=== PATIENT | female | born 1945 ===

== ENCOUNTER 2020-08-26 22:05 | Outpatient (REF) | payer MEDICARE, BC, SELFPAY | END 2020-08-26 22:06 | disposition home or self-care (01) | LOC: NCHCN 22:05 | PROVIDERS: PCP Family Medicine; Visit Provider Family Medicine | DX: N39.0 Urinary tract infection, site not specified (principal) | CPT/HCPCS: 87077; 87086; 87186 ==

== ENCOUNTER 2023-06-01 14:10 | Outpatient (REF) | payer MEDICARE, BC, SELFPAY ==
--- OUTSIDE RECORDS SUMMARY | 2023-06-01 14:12 | XMS_ITS | CCD ---
Author Name Unknown Address [address] [place] [address] [id number] Organization Unknown Address [address] [place] [address] [id number] Care Team Providers Care Gis Application Developer Name Role Phone ISAURA GARLAND Attending Physician [phone] Vital Signs Unknown or Not Available. Allergies Allergy Code Allergy Type Reaction Status No Known Drug Allergies 0 No known drug allergies Active Procedures Unknown or Not Available. History of Immunizations Unknown or Not Available. Problems Unknown or Not Available. Results Unknown or Not Available. Active Medications Unknown or Not Available. Medications Administered During Visit Unknown or Not Available. Encounters Encounter Diagnosis Diagnosis Code Start Date Senile osteoporosis [id number] 08/19/2022 Social History Smoking Status Code Start Date End Date Former smoker [id number] 05/10/1964 05/10/1974 Patient Decision Aids Unknown or Not Available. Discharge Instructions You were admitted to [facility] on 08/19/2022 10:52 with a principal diagnosis of Age-related osteoporosis without current pathological fracture You were discharged from [facility] on 08/19/2022 10:52 Should you have any questions prior to discharge, please contact a member of your healthcare team. If you have left the hospital and have any questions, please contact your primary care physician. Chief Complaint and Reason For Visit Chief Complaint Date of Onset OSTEOPOROSIS Function Status Unknown or Not Available. Plan of Care Unknown or Not Available. Referral/Transition of Care Unknown or Not Available.
[2023-06-01 22:28] LABS: Anion Gap 6.3 mmol/L (3-11); BUN 16 mg/dL (7-18); CO2 27.7 mmol/L (21.0-32.0); CREATININE 0.8 mg/dL (0.55-1.02); Calcium 10.4 mg/dL (8.5-10.1); Calculated LDL 98 mg/dL (<100); Chloride 106 mmol/L (98-107); Cholesterol 180 mg/dL (<200); Estimated GFR 76.31 (mL/min/1.73m2); Glucose 98 mg/dL (74-106); HDL Cholesterol 53 mg/dL (40-60); Potassium 4.3 mmol/L (3.5-5.1); Sodium 140 mmol/L (136-145); Triglyceride 148 mg/dL (<150)
== END 2023-06-01 14:11 | disposition home or self-care (01) ==
LOC: NCHCN 14:10
PROVIDERS: PCP Family Medicine; Visit Provider Family Medicine
DX: Z00.00 Encounter for general adult medical examination without abnormal findings (principal)
CPT/HCPCS: 80048; 80061

== ENCOUNTER 2024-03-30 16:38 | Outpatient (REF) | payer MEDICARE, SELFPAY ==
--- OUTSIDE RECORDS SUMMARY | 2024-03-30 16:42 | XMS_ITS | Encounter Summary ---
Author Organization [facility] Address [address] [place] [address] Care Team Providers Care Cod Clerk Name Role Phone Lorin Niño MD Primary Care Provider [phone] Reason for Visit * Reason Onset Date Comments Other 10/11/2019 see note Encounter Details Date Type Department Care Team (Late st Contact Info) Description 10/11/2019 Telephone [facility]ology & Oncology [address] [place] [address] Savita Bangura, TIM [address] [facility] [address] [place] [address] Other (see note) Social History Tobacco Use Types Packs/Day Years Used Date Smoking Tobacco: Former Smokeless Tobacco: Never Comments:Back in [employer] Comments Unknown Sex and Gender Information Value Date Recorded Sex Assigned at Not on file Legal Sex Female 18:22 EST Gender Identity Female 10/03/2019 8:58 EDT Sexual Orientation Not on file COVID-19 Exposure Response Date Recorded In the last month, have you been in contact with someone who was confirmed or suspected to have Coronavirus / COVID-19? No / Unsure 10/06/2019 13:51 EDT documented as of this encounter Miscellaneous Notes * Telephone Encounter - Tanesha Wilson - 10/11/2019 1102 EDT PT aware and will call Radha to schedule documented in this encounter Plan of Treatment Not on file documented as of this encounter Visit Diagnoses Not on filedocumented in this encounter Care Teams Cod Clerk Relationship Specialty Start Date End Date Lorin Niño MD [address] [place] [address] PCP - General 07/14/12 documented as of this encounter
--- OUTSIDE RECORDS SUMMARY | 2024-03-30 16:42 | XMS_ITS | Referral Summary ---
Author Organization [facility] Address [address] [place] [address] Care Team Providers Care Pneumatic Hoist Operator Name Role Phone Lorin Niño MD Primary Care Provider [phone] Allergies No known active allergies Medications ASCORBATE CALCIUM (VITAMIN C ORAL) Take by mouth daily. Active ERGOCALCIFEROL, VITAMIN D2, (VITAMIN D ORAL) Take by mouth daily. Active tamoxifen (NOLVADEX) 20 mg tablet Take 1 Tab by mouth daily. 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 Stage I A, pT1b(0.7cm) pN0 M0. ER/NV positive, HER-2 negative. a- 05/2013 mammographic finding. Breast biopsy confirming the diagnosis. b- 05/2013-left breast lumpectomy, sentinel lymph node biopsy. [facility]. c-08/2013 completed adjuvant radiation therapy. d-08/2013 - 08/2017 on adjuvant tamoxifen. e- 08/2017 no clear indication for further Tamoxifen, however, patient is very concerned about the risk of osteoporosis and risk of a second malignancy. Decided for prophylactic tamoxifen for total of 10 years. Osteoporosis 10/04/2019 Social History Tobacco Use Types Packs/Day Years Used Date Smoking Tobacco: Former Smokeless Tobacco: Never Comments:Back in [facility] Interpersonal Safety Answer Date Record ed Physically Hurt Never 12/10/2019 Verbally Threaten Not on file 12/10/2019 Comments Unknown Sex and Gender Information Value Date Recorded Sex Assigned at Not on file Legal Sex Female 18:22 EST Gender Identity Female 10/03/2019 8:58 EDT Sexual Orientation Not on file Last Filed Vital Signs Vital Sign Reading Time Taken Comments Blood Pressure 110/82 10/06/2019 1355 EDT Pulse 83 10/06/2019 1355 EDT Temperature 36.7 ??C (98 ??F) 09/27/2012 0901 EDT Respiratory Rate - - Oxygen Saturation 98% 10/06/2019 1355 EDT Inhaled Oxygen Concentration - - Weight 68 kg (150 lb) 10/06/2019 1355 EDT Height - - Body Mass Index - - Plan of Treatment Not on file Insurance [facility] MEDICARE MEDICARE Care Teams Pneumatic Hoist Operator Relationship Specialty Start Date End Date Lorin Niño MD [address] [place] [address] [facility] - General 07/14/12
--- OUTSIDE RECORDS SUMMARY | 2024-03-30 16:42 | XMS_ITS | Encounter Summary ---
Author Organization [facility] Address [address] [place] [address] Care Team Providers Care Furniture Packer Name Role Phone Lorin Niño MD Primary Care Provider [phone] Reason for Visit * Reason Comments New Patient Visit Encounter Details Date Type Department Care Team (Late st Contact Info) Description 10/06/2019 14:00 EDT Office Visit [facility] Adult Hematology & Oncology [address] [place] [address] Savita Bangura, TIM [address] [facility], [facility] [address] [place] [address] Malignant neoplasm of upper-outer quadrant of female breast, unspecified estrogen receptor status, unspecified laterality (HCC-CMS) (Primary Dx) Social History Tobacco Use Types Packs/Day Years [...] 13:51 EDT documented as of this encounter Last Filed Vital Signs Vital Sign Reading Time Taken Comments Blood Pressure 110/82 10/06/2019 1355 EDT Pulse 83 10/06/2019 1355 EDT Temperature - - Respiratory Rate - - Oxygen Saturation 98% 10/06/2019 1355 EDT Inhaled Oxygen Concentration - - Weight 68 kg (150 lb) 10/06/2019 1355 EDT Height - - Body Mass Index - - documented in this encounter Progress Notes * Savita Bangura MBBS - 10/06/2019 1400 EDT Images from the original note were not included. 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 Stage I A, pT1b(0.7cm) pN0 M0. ER/MT positive, HER-2 negative. 2013: Diagnosed with stage I left-sided breast cancer May,: Biopsy: DCIS, invasive ductal carcinoma of left breast, ER MT positive and HER-2 negative. May,: Left lumpectomy with sentinel lymph node biopsy: Well- differentiated 0.7 cm invasiveductal carcinoma with a component of DCIS, negative sentinel lymph nodes, HER-2 negative. August,: Patient finished adjuvant radiation therapy. August,-August,: Patient finished tamoxifen. She was started on tamoxifen as DEXA scan fromSep, 2013 showed T score of -1.3 in hips and T score of -2.6 in her lumbosacral spine. August,: Patient is concerned about osteoporosis and risk of second malignancy. Decided to taketamoxifen for 10 years in total. August,: Ultrasound of left breast: Asymmetry noted in upper left breast with new calcifications. Biopsy: Benign breast tissue with fat necrosis and microcalcifications noted and hyalinized fibrosis. Patient is being seen in medical oncology today for her annual visit.?Today, patient mentions that she did not get her screening mammogram this year. She reports feeling well. She denies lumps in both breasts, chest pain, shortness of breath, abdominal pain, changes in bladder or bowel habits.?She also mentions that her last DEXA scan was in 2013. 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 Patient used oral contraceptive pills for approximately 10 to 15 years during her teenage years. PROBLEM LIST Patient Active Problem List Diagnosis ??? Chronic fatigue ??? Malignant neoplasm of female breast (HCC-CMS) ??? Osteoporosis PAST HISTORY Past Medical History: Diagnosis Date ??? Basal cell carcinoma 09/27/12 right neck Past Surgical History: Procedure Laterality Date ??? MOHS SURGERY 09/27/12 right neck Family History Problem Relation Age of Onset ??? Lung Cancer Father ??? Colon Cancer Paternal Grandfather Social History Tobacco Use ??? Smoking status: Former Smoker ??? Smokeless tobacco: Never Used ??? Tobacco comment: Back in [facility] Substance Use Topics ??? Alcohol use: Not on file ??? Drug use: Not on file Social History Social History Narrative Patient lives with her at home. She denies smoking or alcohol use. 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 MEDICATIONS Current Outpatient Medications Medication Sig Dispense Refill Last Dose ??? ASCORBATE CALCIUM (VITAMIN C ORAL) Take by mouth daily. Taking ??? ERGOCALCIFEROL, VITAMIN D2, (VITAMIN D ORAL) Take by mouth daily. Taking ??? FLAXSEED ORAL sprinkle on cereal Taking ??? tamoxifen (NOLVADEX) 20 mg tablet Take 1 Tab by mouth daily. Taking No current facility-administered medications for this visit. ALLERGIES No Known Allergies REVIEW OF SYSTEMS Constitutional: Negative for activity change, appetite change, fatigue and fever. HENT: Negative. Eyes: Negative. Respiratory: Negative. Cardiovascular: Negative. Gastrointestinal: Negative. Endocrine: Negative. Musculoskeletal: Negative. Skin: Negative. Allergic/Immunologic: Negative. Neurological: Negative. Hematological: Negative. Psychiatric/Behavioral: Negative. DIAGNOSTIC DATA Results for orders placed or performed in visit on 09/07/18 SURGICAL PATHOLOGY Result Value Ref Range Pathology Report: SURGICAL PATHOLOGY REPORT Reports generated via electronic interface contain original data; however they are lacking the format of the original report. Caution should be taken when reading/interpreting unformatted reports. Name: WALLACE CARMEN : 1945 (Age: 73) F Collect Date: 09/07/2018 Location: [facility] Receive Date: 09/07/2018 Provider: CAMELIA ANTONIO MD Copy to: LOIRN SAENZ MD Final Pathologic Diagnosis: BREAST, LEFT, 12 O'CLOCK, 9 CM FROM NIPPLE, STEREOTACTIC, NEEDLE CORE BIOPSY: - Benign breast tissue with prior biopsy site changes including fat necrosis and dense hyalinized fibrosis - Microcalcifications are identified within the hyalinized fibrosis (sections 1 and 2). Document reviewed and electronically signed by: CHRIS Ames eport Date: 09/12/2018 16:21 By the signature above, the attending physician certifies that he/she has personally conducted a gross and/or microscopic examination of the described specimens and rendered or confirmed the above diagnosis. Specimen(s) Received: Stereotactic, vacuum assisted, large core biopsy, left breast, 12 o'clock, 9 cm out Clinical History: Left breast, coarse heterogeneous calcifications at prior lumpectomy site Gross Description: Received in formalin labelled with proper patient identification (initials M, K) and left rest calcs, 12 o'clock, 9 cm from nipple is a biopsy compartment system with seven yellow and white cylindrical fibrofatty tissue cores (1.0 cm to 2.5 cm in length, and each 0.3 cm in diameter). The tissue designated to contain microcalcifications are entirely submitted in 1 and the remaining tissue in 2-3. Time removed from patient: 1355 hrs. 09/07/2018 Time placed in formalin: 1405 hrs. 09/07/2018 Time out of formali n: 1900 hrs. 09/08/2018 HAYLEY Kohli ([facility]) 09/07/2018 4:38 PM End of Report VITALS Patient Vitals for the past 24 hrs: BP Pulse SpO2 Weight 10/06/19 1355 110/82 83 98 % 68 kg (150 lb) Last 5 Weights Filed This Admission 10/06/19 1355 Weight: 68 kg (150 lb) ECOG performance status: 0 PHYSICAL EXAM Physical Exam Constitutional: She is oriented to person, place, and time. She appears well- developed and well-nourished. HENT: Head: Normocephalic and atraumatic. Nose: Nose normal. Eyes: Conjunctivae are normal. No scleral icterus. Neck: Normal range of motion. Neck supple. Cardiovascular: Normal rate and regular rhythm. Pulmonary/Chest: Effort normal and breath sounds normal. Right breast exhibits skin change (Firm mass palpable at 6 o'clock position in right breast ? Fibrous tissue). Right breast exhibits no inverted nipple, no mass, no nipple discharge and no tenderness. Left breast exhibits no inverted nipple, no mass, no nipple discharge, no skin change and no tenderness. No breast swelling or bleeding. Breasts are symmetrical. Abdominal: Soft. Bowel sounds are normal. She exhibits no distension and no mass. There is no splenomegaly or hepatomegaly. There is no tenderness. Musculoskeletal: Normal range of motion. She exhibits no edema or tenderness. Neurological: She is alert and oriented to person, place, and time. Skin: Skin is warm and dry. No rash noted. Psychiatric: She has a normal mood and affect. Thought content normal. Nursing note and vitals reviewed. DIAGNOSIS The encounter diagnosis was Malignant neoplasm of upper-outer quadrant of female breast, unspecified estrogen receptor status, unspecified laterality ([facility] ASSESSMENT AND PLAN: 74-year-old female with past medical history significant for stage Ia ER MT positive and HER-2 negative invasive ductal carcinoma of left breast status post partial mastectomy and [facility]. Given small size of tumor, patient finished adjuvant radiation therapy and finished 5 years of hormonal therapy with tamoxifen as of August,. After discussing benefits versus risks of stopping tamoxifen, patient decided to continue tamoxifen. She is being seen today for annual follow-up. 1. Stage Ia left-sided breast cancer: Currently on hormonal therapy with tamoxifen. Today, I mentioned to her that she is at very low risk for recurrence and can stop tamoxifen after 5 years. Estimated risk for recurrence after 5 years of tamoxifen between years 5-10 is approximately 1.7%. However,she decided to complete 10 years of tamoxifen. I also mentioned to her on side effects of tamoxifen including small risk for endometrial cancer, cataracts, risk for DVT and PE. She is advised to be compliant with yearly gynecologic assessment while on tamoxifen. In addition, I advised her to be up-to-date with her screening mammogram, which [facility]. 2. Osteoporosis: Last DEXA scan from 2013 with T score of -2.6 at lumbar spine, consistent with osteoporosis. Patient currently on tamoxifen. It is reasonable to repeat a DEXA scan, however patient declined. Follow-up: 1 year with screening mammogram prior to the visit. Other Orders Placed This Visit Procedures ??? MAMMO BREAST SCREENING BILATERAL ??? MAMMO BREAST SCREENING BILATERAL Savita Bangura MD Clinical Practice Physician Hematology/ Medical Oncology [facility] Ph no: [phone] A total of 60 minutes, was spent during today's visit, 50 minutes of which was in direct [id number] contact and coordination of care regarding the plan as outlined and mentioned above. CC: Primary Care Provider: Lorin Niño [address] [place] [address] documented in this encounter Plan of Treatment Not on file documented as of this encounter Visit Diagnoses Diagnosis Malignant neoplasm of upper-outer quadrant of female breast, unspecified estrogen receptor status, unspecified laterality ([facility] Primary documented in this encounter Discontinued Medications Medication Sig Discontinue Reason Start Date End Da te ascorbic acid, vitamin C, (VITAMIN C) 250 mg tablet Take 1 Tab by mouth daily. Therapy completed 10/06/2019 DOCOSAHEXANOIC ACID/EPA (EPA FISH OIL ORAL) Take by mouth daily. Therapy completed 10/06/2019 vit A/vit C/vit E/zinc/copper (PRESERVISION AREDS ORAL) Take 1 Cap by mouth daily. Therapy completed 10/06/2019 documented as of this encounter Historical Medications * This list may reflect changes made after this encounter. FLAXSEED ORAL sprinkle on cereal tamoxifen (NOLVADEX) 20 mg tablet Take 1 Tab by mouth daily. vit A/vit C/vit E/zinc/copper (PRESERVISION AREDS ORAL) Take 1 Cap by mouth daily. 10/06/2019 ascorbic acid, vitamin C, (VITAMIN C) 250 mg tablet Take 1 Tab by mouth daily. 10/06/2019 added in this encounter Care Teams Furniture Packer Relationship Specialty Start Date End Date Lorin Niño MD [address] [place] [address] PCP - General 07/14/12 documented as of this encounter
--- OUTSIDE RECORDS SUMMARY | 2024-03-30 16:42 | XMS_ITS | Encounter Summary ---
Author Organization [facility] Address [address] [place] [address] Care Team Providers Care Associate Sales Manager Name Role Phone Lorin Niño MD Primary Care Provider [phone] Encounter Details Date Type Department Care Team (Late st Contact Info) Description 08/26/2018 Results Only Imaging [facility] [address] [place], [place] [id number] Bibiana Moe MD [address] [facility] [place] [address] Social History Tobacco Use Types Packs/Day Years Used Date Smoking Tobacco: Never Assessed Comments Unknown Sex and Gender Information Value Date Recorded Sex Assigned at Not on file Legal Sex Female 18:22 EST Gender Identity Female 10/03/2019 8:58 EDT Sexual Orientation Not on file documented as of this encounter Plan of Treatment Pending Results Name Type Priority Associated Diagnoses Date /Time OUTSIDE IMAGES - US BREAST Imaging 08/18/2018 8:42 EDT OUTSIDE IMAGES - MAMMO BREAST Imaging 08/18/2018 8:42 EDT OUTSIDE IMAGES - MAMMO BREAST Imaging 08/09/2018 8:42 EDT OUTSIDE IMAGES - MAMMO BREAST Imaging 08/06/2017 8:42 EDT OUTSIDE IMAGES - MAMMO BREAST Imaging 05/27/2016 8:42 EST OUTSIDE IMAGES - MAMMO BREAST Imaging 05/21/2015 8:42 EST OUTSIDE IMAGES - MAMMO BREAST Imaging 05/14/2014 0:00 EST OUTSIDE IMAGES - US BREAST Imaging 05/25/2013 8:42 EST OUTSIDE IMAGES - US BREAST Imaging 05/12/2013 8:42 EST documented as of this encounter Visit Diagnoses Not on filedocumented in this encounter Care Teams Associate Sales Manager Relationship Specialty Start Date End Date Lorin Niño MD [address] [place] [address] PCP - General 07/14/12 documented as of this encounter
--- OUTSIDE RECORDS SUMMARY | 2024-03-30 16:42 | XMS_ITS | Encounter Summary ---
Author Organization [facility] Address [address] [place] [address] Care Team Providers Care Embroiderer Name Role Phone Lorin Niño MD Primary Care Provider [phone] Encounter Details Date Type Department Care Team (Late st Contact Info) Description 04/09/2016 Historical Results Only [facility] - Main [address] [id number] Sandoval Hammond MD [address] [place] [phone] Social History Tobacco Use Types Packs/Day Years Used Date Smoking Tobacco: Never Assessed Comments Unknown Sex and Gender Information Value Date Recorded Sex Assigned at Not on file Legal Sex Female 18:22 EST Gender Identity Female 10/03/2019 8:58 EDT Sexual Orientation Not on file documented as of this encounter Plan of Treatment Not on file documented as of this encounter Procedures Procedure Name Priority Date/Time Associated Diagnosis Comments N-TELOPEPTIDE, CROSS-LINKED, SERUM Routine 04/09/2016 10:44 EST VIT D, 25-HYDROXY - [facility] Routine 04/09/2016 10:43 EST PTH INTACT Routine 04/09/2016 10:43 EST TSH Routine 04/09/2016 10:43 EST documented in this encounter Results * N-TELOPEPTIDE, CROSS-LINKED, SERUM (04/09/2016 10:44 EST) CREATININE (U) - [facility] 140 () mg/dL 04/14/2016 8:25 EST [facility] NTX (N-TELOPEPTIDE) - [facility] 285 () nmol/L 04/14/2016 8:25 EST [facility] NTX/CREATININE - [facility] 23 () 04/14/2016 8:25 EST [facility] Comment: INFCE Result Units: nmol/mmol nmol/mmol = nmol Bone Collagen Equivalents/mmol Creatinine REFERENCE VALUE Premenopausal: 17-94 nmol/mmol Postmenopausal: ??26-124 nmol/mmol Test Performed by: [place] [address] Sleep Technician: Antonio Vargas II, M.D., Ph.D. 04/09/2016 10:4 4 EST 04/09/2016 10:44 EST Narrative [facility] - 04/14/2016 8:25 EST Does PT Have a Latex Allergy? NO us Sandoval Hammond MD CHEMISTRY & BLOOD GAS ORDERABLE S Final Result [facility] * (ABNORMAL) VIT D, 25-HYDROXY - [facility] (04/09/2016 10:43 EST) VIT D, 25 HYDROXY - [facility] 24(L) 30 - 100 ng/ml 04/09/2016 12:54 EST [facility] Comment: ? 25-Hydroxy D Total (D2+D3) ?Expected Values Deficient: ?<10 ng/ml Insufficient: ? 10-29 ng/ml Sufficient: ? 30-100 ng/ml Potential intoxication: >100 ng/ml 04/09/2016 10:4 3 EST 04/09/2016 10:43 EST [facility] - 04/09/2016 12:54 EST Does PT Have a Latex Allergy? NO us Sandoval Hammond MD CHEMISTRY & BLOOD GAS ORDERABLE S Final Result Performing Organization Address [facility]/ZIP Co de Phone Number [facility] * TSH (04/09/2016 10:43 EST) THYROID STIM HORMONE - [facility] 3.09 0.35 - 5.50 uIU/mL 04/09/2016 12:54 EST [facility] 04/09/2016 10:4 3 EST 04/09/2016 10:43 EST [facility] - 04/09/2016 12:54 EST Does PT Have a Latex Allergy? NO us Sandoval Hammond MD CHEMISTRY & BLOOD GAS ORDERABLE S Final Result Performing Organization Address [facility] Co de Phone Number [facility] * PTH INTACT (04/09/2016 10:43 EST) Intact PTH 63.1 14 - 72 pg/mL 04/09/2016 12:54 EST [facility] Comment: Parathyroid hormone (PTH) values should be interpreted in conjunction with serum calcium and phosphorus levels, and the overall clinical presentation and history of the patient. About 90% of the patients with primary hyperparathyroidism have elevated parathyroid hormone (PTH) levels. The remaining patients have normal (inappropriate for the elevated calcium level) PTH levels. A low or normal PTH in a patient with hypocalcemia suggests hypoparathyroidism, provided the serum magnesium level is normal. 04/09/2016 10:4 3 EST 04/09/2016 10:44 EST [facility] - 04/09/2016 12:54 EST Does PT Have a Latex Allergy? NO us Sandoval Hammond MD CHEMISTRY & BLOOD GAS ORDERABLE S Final Result [facility] documented in this encounter Visit Diagnoses Not on filedocumented in this encounter Care Teams Embroiderer Relationship Specialty Start Date End Date Lorin Niño MD [address] [place] [address] PCP - General 07/14/12 documented as of this encounter
--- OUTSIDE RECORDS SUMMARY | 2024-03-30 16:42 | XMS_ITS | Encounter Summary ---
Author Organization [facility] Address [address] [place] [address] Care Team Providers Care Advisory Software Engineer Name Role Phone Lorin Niño MD Primary Care Provider [phone] Encounter Details Date Type Department Care Team (Late st Contact Info) Description 09/07/2018 Results Only Imaging [facility] [phone] Linette Walker MD [address] [place] [id number] Social History Tobacco Use Types Packs/Day Years [...] Procedure Name Priority Date/Time Associated Diagnosis Comments MA STEREO SPECIMEN ONLY 09/07/2018 14:31 EDT MA AFFIRM STEREO BX MAMMO 09/07/2018 14:28 EDT UNI LEFT ONLY POST PROCEDURE 2D MAMMO CHARGES ATTACHED 09/07/2018 14:21 EDT documented in this encounter Results * MA STEREO SPECIMEN ONLY (09/07/2018 14:31 EDT) Anatomical Region Laterality Modality Other 09/07/2018 14:3 1 EDT 09/13/2018 10:49 EDT Narrative 09/07/2018 16:02 EDT Addendum Begins Addendum: This is an addendum to the stereotactic biopsy performed by Dr. Prakash on 09/07/2018. The imaging findings and final pathology was reviewed by Drs. Hallman and Chucky. The pathology demonstrates benign breast tissue with prior biopsy site changes including fat necrosis and dense hyalinized fibrosis. Microcalcifications are identified within the hyalinized fibrosis. These findings are benign and concordant. Annual screening mammogram is recommended and next due in August 2019. Per Dr. Walker, Leni Willard will call the patient to notify her of the results and follow-up recommendations. Addendum Ends AFFIRM STEREO BX MAMMO, MA STEREO SPECIMEN ONLY, UNI LEFT ONLY POST PROCEDURE 2D MAMMO CHARGES ATTACHED ??09/07/2018 2:28 PM Clinical History/Comments: Left breast calcifications 12:00, 9.5 cm from nipple Comparisons: ?? Mammogram dated August 19, 2018, August 09, 2015 Procedure/Findings: Written and verbal informed consents were obtained from the patient for this stereotactic guided 1 site biopsy of calcifications ??in the left breast at 12 o'clock, 9 cm from the nipple. ??The risks, benefits, and alternatives to this procedure were explained to the patient. Once the patient's full name, date of , and side of biopsy were confirmed, the patient was placed on the Affirm stereotactic table for an approach from the lateral. The lesion in question was targeted with stereotaxis. Site verification and skin marking was performed according to established site marking procedure. A safety timeout was performed. The skin was cleansed with Betadine. ??0.5 cc of buffered 1% lidocaine was used for superficial anesthesia and 8 cc of 1% lidocaine with epinephrine were used for deeper anesthesia. The skin was incised with a #11 blade. 6 core biopsies were obtained with a vacuum assisted 9-gauge stereotactic biopsy device. The specimen radiograph showed calcifications in 3 pieces of tissue. A HyrdoMark Type IV coil-shaped clip was deployed in the area biopsied. Postprocedure digital mammography was performed in the spot magnification CC and ML projections; demonstrating interval removal of some of the calcifications in question. The Hydromark clip is approximately 1.2 cm lateral to the targeted calcifications. Several residual calcifications remain. There were no immediate postprocedure complications. ?? The patient was told that our biopsy plant health care technician will notify her of the results via phone in 3-5 business days. Impression: Successful stereotactic guided biopsy. Procedure Note Mery Prakash MD / Michelle Hallman MD, - 09/13/2018 Addendum Begins Addendum: This is an addendum to the stereotactic biopsy performed by Dr. Prakash on 09/07/2018. The imaging findings and final pathology was reviewed by Drs. Hallman and Chucky. The pathology demonstrates benign breast tissue with prior biopsy site changes including fat necrosis and dense hyalinized fibrosis. Microcalcifications are identified within the hyalinized fibrosis. These findings are benign and concordant. Annual screening mammogram is recommended and next due in August 2019. Per Dr. Walker, Leni Sudheer will call the patient to notify her of the results and follow-up recommendations. Addendum Ends AFFIRM STEREO BX MAMMO, MA STEREO SPECIMEN ONLY, UNI LEFT ONLY POST PROCEDURE 2D MAMMO CHARGES ATTACHED 09/07/2018 2:28 PM Clinical History/Comments: Left breast calcifications 12:00, 9.5 cm from nipple Comparisons: Mammogram dated August 19, 2018, August 09, 2015 Procedure/Findings: Written and verbal informed consents were obtained from the patient for this stereotactic guided 1 site biopsy of calcifications in the left breast at 12 o'clock, 9 cm from the nipple. The risks, benefits, and alternatives to this procedure were explained to the patient. Once the patient's full name, date of , and side of biopsy were confirmed, the patient was placed on the Affirm stereotactic table for an approach from the lateral. The lesion in question was targeted with stereotaxis. Site verification and skin marking was performed according to established site marking procedure. A safety timeout was performed. The skin was cleansed with Betadine. 0.5 cc of buffered 1% lidocaine was used for superficial anesthesia and 8 cc of 1% lidocaine with epinephrine were used for deeper anesthesia. The skin was incised with a #11 blade. 6 core biopsies were obtained with a vacuum assisted 9-gauge stereotactic biopsy device. The specimen radiograph showed calcifications in 3 pieces of tissue. A HighGroundrdoMark Type IV coil-shaped clip was deployed in the area biopsied. Postprocedure digital mammography was performed in the spot magnification CC and ML projections; demonstrating interval removal of some of the calcifications in question. The Hydromark clip is approximately 1.2 cm lateral to the targeted calcifications. Several residual calcifications remain. There were no immediate postprocedure complications. The patient was told that our biopsy plant health care technician will notify her of the results via phone in 3-5 business days. Impression: Successful stereotactic guided biopsy. us Linette Walker MD IMG MAMMOGRAPHY ORDERABLES Ubaldo ulises * BECCA AFFIRM STEREO BX MAMMO (09/07/2018 14:28 EDT) Anatomical Region Laterality Modality Other 09/07/2018 14:2 8 EDT 09/26/2018 13:24 EDT Narrative 09/07/2018 16:02 EDT Addendum Begins Addendum: This is an addendum to the stereotactic biopsy performed by Dr. Prakash on 09/07/2018. The imaging findings and final pathology was reviewed by Drs. Hallman and Chucky. The pathology demonstrates benign breast tissue with prior biopsy site changes including fat necrosis and dense hyalinized fibrosis. Microcalcifications are identified within the hyalinized fibrosis. These findings are benign and concordant. Annual screening mammogram is recommended and next due in August 2019. Per Dr. Walker, Leni Willard will call the patient to notify her of the results and follow-up recommendations. Addendum Ends AFFIRM STEREO BX MAMMO, MA STEREO SPECIMEN ONLY, UNI LEFT ONLY POST PROCEDURE 2D MAMMO CHARGES ATTACHED ??09/07/2018 2:28 PM Clinical History/Comments: Left breast calcifications 12:00, 9.5 cm from nipple Comparisons: ?? Mammogram dated August 19, 2018, August 09, 2015 Procedure/Findings: Written and verbal informed consents were obtained from the patient for this stereotactic guided 1 site biopsy of calcifications ??in the left breast at 12 o'clock, 9 cm from the nipple. ??The risks, benefits, and alternatives to this procedure were explained to the patient. Once the patient's full name, date of , and side of biopsy were confirmed, the patient was placed on the Affirm stereotactic table for an approach from the lateral. The lesion in question was targeted with stereotaxis. Site verification and skin marking was performed according to established site marking procedure. A safety timeout was performed. The skin was cleansed with Betadine. ??0.5 cc of buffered 1% lidocaine was used for superficial anesthesia and 8 cc of 1% lidocaine with epinephrine were used for deeper anesthesia. The skin was incised with a #11 blade. 6 core biopsies were obtained with a vacuum assisted 9-gauge stereotactic biopsy device. The specimen radiograph showed calcifications in 3 pieces of tissue. A HyrdoMark Type IV coil-shaped clip was deployed in the area biopsied. Postprocedure digital mammography was performed in the spot magnification CC and ML projections; demonstrating interval removal of some of the calcifications in question. The Hydromark clip is approximately 1.2 cm lateral to the targeted calcifications. Several residual calcifications remain. There were no immediate postprocedure complications. ?? The patient was told that our biopsy plant health care technician will notify her of the results via phone in 3-5 business days. Impression: Successful stereotactic guided biopsy. Procedure Note Mery Prakash MD / Michelle Hallman MD, MD - 09/26/2018 Addendum Begins Addendum: This is an addendum to the stereotactic biopsy performed by Dr. Prakash on 09/07/2018. The imaging findings and final pathology was reviewed by Drs. Hallman and Chucky. The pathology demonstrates benign breast tissue with prior biopsy site changes including fat necrosis and dense hyalinized fibrosis. Microcalcifications are identified within the hyalinized fibrosis. These findings are benign and concordant. Annual screening mammogram is recommended and next due in August 2019. Per Leni Alvarado will call the patient to notify her of the results and follow-up recommendations. Addendum Ends AFFIRM STEREO BX MAMMO, MA STEREO SPECIMEN ONLY, UNI LEFT ONLY POST PROCEDURE 2D MAMMO CHARGES ATTACHED 09/07/2018 2:28 PM Clinical History/Comments: Left breast calcifications 12:00, 9.5 cm from nipple Comparisons: Mammogram dated August 19, 2018, August 09, 2015 Procedure/Findings: Written and verbal informed consents were obtained from the patient for this stereotactic guided 1 site biopsy of calcifications in the left breast at 12 o'clock, 9 cm from the nipple. The risks, benefits, and alternatives to this procedure were explained to the patient. Once the patient's full name, date of , and side of biopsy were confirmed, the patient was placed on the Affirm stereotactic table for an approach from the lateral. The lesion in question was targeted with stereotaxis. Site verification and skin marking was performed according to established site marking procedure. A safety timeout was performed. The skin was cleansed with Betadine. 0.5 cc of buffered 1% lidocaine was used for superficial anesthesia and 8 cc of 1% lidocaine with epinephrine were used for deeper anesthesia. The skin was incised with a #11 blade. 6 core biopsies were obtained with a vacuum assisted 9-gauge stereotactic biopsy device. The specimen radiograph showed calcifications in 3 pieces of tissue. A HighGroundrdoMark Type IV coil-shaped clip was deployed in the area biopsied. Postprocedure digital mammography was performed in the spot magnification CC and ML projections; demonstrating interval removal of some of the calcifications in question. The Hydromark clip is approximately 1.2 cm lateral to the targeted calcifications. Several residual calcifications remain. There were no immediate postprocedure complications. The patient was told that our biopsy plant health care technician will notify her of the results via phone in 3-5 business days. Impression: Successful stereotactic guided biopsy. us Linette Walker MD IMG MAMMOGRAPHY ORDERABLES Ubaldo ulises * UNI LEFT ONLY POST PROCEDURE 2D MAMMO CHARGES ATTACHED (09/07/2018 14:21 EDT) Anatomical Region Laterality Modality Other 09/07/2018 14:2 1 EDT 09/13/2018 10:49 EDT Narrative 09/07/2018 16:02 EDT Addendum Begins Addendum: This is an addendum to the stereotactic biopsy performed by Dr. Prakash on 09/07/2018. The imaging findings and final pathology was reviewed by Drs. Hallman and Chucky. The pathology demonstrates benign breast tissue with prior biopsy site changes including fat necrosis and dense hyalinized fibrosis. Microcalcifications are identified within the hyalinized fibrosis. These findings are benign and concordant. Annual screening mammogram is recommended and next due in August 2019. Per Leni Alvarado will call the patient to notify her of the results and follow-up recommendations. Addendum Ends AFFIRM STEREO BX MAMMO, MA STEREO SPECIMEN ONLY, UNI LEFT ONLY POST PROCEDURE 2D MAMMO CHARGES ATTACHED ??09/07/2018 2:28 PM Clinical History/Comments: Left breast calcifications 12:00, 9.5 cm from nipple Comparisons: ?? Mammogram dated August 19, 2018, August 09, 2015 Procedure/Findings: Written and verbal informed consents were obtained from the patient for this stereotactic guided 1 site biopsy of calcifications ??in the left breast at 12 o'clock, 9 cm from the nipple. ??The risks, benefits, and alternatives to this procedure were explained to the patient. Once the patient's full name, date of , and side of biopsy were confirmed, the patient was placed on the Affirm stereotactic table for an approach from the lateral. The lesion in question was targeted with stereotaxis. Site verification and skin marking was performed according to established site marking procedure. A safety timeout was performed. The skin was cleansed with Betadine. ??0.5 cc of buffered 1% lidocaine was used for superficial anesthesia and 8 cc of 1% lidocaine with epinephrine were used for deeper anesthesia. The skin was incised with a #11 blade. 6 core biopsies were obtained with a vacuum assisted 9-gauge stereotactic biopsy device. The specimen radiograph showed calcifications in 3 pieces of tissue. A HyrdoMark Type IV coil-shaped clip was deployed in the area biopsied. Postprocedure digital mammography was performed in the spot magnification CC and ML projections; demonstrating interval removal of some of the calcifications in question. The Hydromark clip is approximately 1.2 cm lateral to the targeted calcifications. Several residual calcifications remain. There were no immediate postprocedure complications. ?? The patient was told that our biopsy plant health care technician will notify her of the results via phone in 3-5 business days. Impression: Successful stereotactic guided biopsy. Procedure Note Mery Prakash MD / Michelle Hallman MD, MD - 09/13/2018 Addendum Begins Addendum: This is an addendum to the stereotactic biopsy performed by Dr. Prakash on 09/07/2018. The imaging findings and final pathology was reviewed by Drs. Hallman and Chucky. The pathology demonstrates benign breast tissue with prior biopsy site changes including fat necrosis and dense hyalinized fibrosis. Microcalcifications are identified within the hyalinized fibrosis. These findings are benign and concordant. Annual screening mammogram is recommended and next due in August 2019. Per Anca Alvaradoen Young will call the patient to notify her of the results and follow-up recommendations. Addendum Ends AFFIRM STEREO BX MAMMO, MA STEREO SPECIMEN ONLY, UNI LEFT ONLY POST PROCEDURE 2D MAMMO CHARGES ATTACHED 09/07/2018 2:28 PM Clinical History/Comments: Left breast calcifications 12:00, 9.5 cm from nipple Comparisons: Mammogram dated August 19, 2018, August 09, 2015 Procedure/Findings: Written and verbal informed consents were obtained from the patient for this stereotactic guided 1 site biopsy of calcifications in the left breast at 12 o'clock, 9 cm from the nipple. The risks, benefits, and alternatives to this procedure were explained to the patient. Once the patient's full name, date of , and side of biopsy were confirmed, the patient was placed on the [facility] stereotactic table for an approach from the lateral. The lesion in question was targeted with stereotaxis. Site verification and skin marking was performed according to established site marking procedure. A safety timeout was performed. The skin was cleansed with Betadine. 0.5 cc of buffered 1% lidocaine was used for superficial anesthesia and 8 cc of 1% lidocaine with epinephrine were used for deeper anesthesia. The skin was incised with a #11 blade. 6 core biopsies were obtained with a vacuum assisted 9-gauge stereotactic biopsy device. The specimen radiograph showed calcifications in 3 pieces of tissue. A HyrdoMark Type IV coil-shaped clip was deployed in the area biopsied. Postprocedure digital mammography was performed in the spot magnification CC and ML projections; demonstrating interval removal of some of the calcifications in question. The Hydromark clip is approximately 1.2 cm lateral to the targeted calcifications. Several residual calcifications remain. There were no immediate postprocedure complications. The patient was told that our biopsy plant health care technician will notify her of the results via phone in 3-5 business days. Impression: Successful stereotactic guided biopsy. us Linette Walker MD IMG MAMMOGRAPHY ORDERABLES Ubaldo ulises documented in this encounter Visit Diagnoses Not on filedocumented in this encounter Care Teams Advisory Software Engineer Relationship Specialty Start Date End Date Lorin Niño MD [address] [place] [address] PCP - General 07/14/12 documented as of this encounter
--- OUTSIDE RECORDS SUMMARY | 2024-03-30 16:42 | XMS_ITS | Encounter Summary ---
Author Organization [facility] Address [address] [place] [address] Care Team Providers Care Archaeology Professor Name Role Phone Lorin Niño MD Primary Care Provider [phone] Reason for Visit * Reason Onset Date Comments Other 10/16/2019 PAtient did not want a F/U Encounter Details Date Type Department Care Team (Late st Contact Info) Description 10/16/2019 Telephone [facility] Adult Hematology & Oncology [address] [place] [id number] Savita Bangura, MATTBS [address] [facility] [address] [place] [address] Other (PAtient did not want a F/U) Social History Tobacco Use Types Packs/Day Years [...] * Telephone Encounter - Tanesha Wilson - 10/17/2019 7275 EDT Patient all set documented in this encounter Plan of Treatment Not on file documented as of this encounter Visit Diagnoses Not on filedocumented in this encounter Care Teams Archaeology Professor Relationship Specialty Start Date End Date Lorin Niño MD [address] [place] [address] PCP - General 07/14/12 documented as of this encounter
--- OUTSIDE RECORDS SUMMARY | 2024-03-30 16:42 | XMS_ITS | Encounter Summary ---
Author Organization [facility] Address [address] [place] [address] Care Team Providers Care Delivery Rep Name Role Phone Lorin Niño MD Primary Care Provider [phone] Encounter Details Date Type Department Care Team (Latest Contact Info) Description 09/07/2018 12:34 EDT - 09/07/2018 23:59 EDT Hospital Encounter [facility] [address] [place] [address] Lorin Niño MD [address] [place] [address] [place] [address] Discharge Disposition: Auto Discharge Social History Tobacco Use Types Packs/Day Years Used Date Smoking Tobacco: Never Assessed Comments Unknown Sex and Gender Information Value Date Recorded Sex Assigned at Not on file Legal Sex Female 18:22 EST Gender Identity Female 10/03/2019 8:58 EDT Sexual Orientation Not on file documented as of this encounter Discharge Diagnoses Diagnosis R92.0 Mammographic microcalcification found on diagnostic imaging of breast-R92.0[ICD-10-CM] documented in this encounter Medications at Time of Discharge ASCORBATE CALCIUM (VITAMIN C ORAL) Take by mouth daily. ERGOCALCIFEROL, VITAMIN D2, (VITAMIN D ORAL) Take by mouth daily. DOCOSAHEXANOIC ACID/EPA (EPA FISH OIL ORAL) Take by mouth daily. 10/06/2019 documented as of this encounter Discharge Disposition Disposition Code Departure Means Destination Auto Discharge Home documented in this encounter Plan of Treatment Not on file documented as of this encounter Visit Diagnoses Not on filedocumented in this encounter Care Teams Delivery Rep Relationship Specialty Start Date End Date Lorin Niño MD [address] [place] [id number] PCP - General 07/14/12 documented as of this encounter
--- OUTSIDE RECORDS SUMMARY | 2024-03-30 16:42 | XMS_ITS | Encounter Summary ---
Author Organization [facility] Address [address] [place] [address] Care Team Providers Care Enamel Dipper Name Role Phone Lorin Niño MD Primary Care Provider [phone] Encounter Details Date Type Department Care Team (Latest Contact Info) Description 10/06/2019 Travel Social History Tobacco Use Types Packs/Day Years [...] 13:51 EDT documented as of this encounter Plan of Treatment Not on file documented as of this encounter Visit Diagnoses Not on filedocumented in this encounter Care Teams Enamel Dipper Relationship Specialty Start Date End Date Lorin Niño MD [address] [place] [address] PCP - General 07/14/12 documented as of this encounter
--- OUTSIDE RECORDS SUMMARY | 2024-03-30 16:42 | XMS_ITS | Encounter Summary ---
Author Organization [facility] Address [address] [place] [address] Care Team Providers Care Hogshead Packer Name Role Phone Lorin Niño MD Primary Care Provider [phone] Reason for Visit * Reason Onset Date Comments Provider Referred 05/05/2017 Encounter Details Date Type Department Care Team (Late st Contact Info) Description 05/05/2017 Telephone [facility] Dermatology 3rd Floor [address] [id number] Toni Georges MD [address] [facility] [place] [address] Provider Referred Social History Tobacco Use Types Packs/Day Years Used Date Smoking Tobacco: Never Assessed Comments Unknown Sex and Gender Information Value Date Recorded Sex Assigned at Not on file Legal Sex Female 18:22 EST Gender Identity Female 10/03/2019 8:58 EDT Sexual Orientation Not on file documented as of this encounter Miscellaneous Notes * Telephone Encounter - Tanesha Vargas RN - 05/12/2017 1005 EST Spoke to patient Already has appointment for Declined appointment - would like appointment for 12/17/17 with HAYLEY Garcia-Chapito canceled States she already made an appointment with a different [facility] practice in [place]. Spoke to Neeta at [facility], office of Dr Lorin Niño Informed as above TANESHA VARGAS RN 05/12/2017 10:12 * Telephone Encounter - Alon Guevara - 05/12/2017 0836 EST Notes scanned into external notes in prism. * Telephone Encounter - Rosalinda Akins - 05/07/2017 1344 EST Notes received pending scanning. * Telephone Encounter - Tanesha Vargas RN - 05/07/2017 1232 EST Left message for patient to call us back to obtain more information and schedule an appointment TANESHA VARGAS RN 05/07/2017 12:32 * Telephone Encounter - Rosalinda Akins - 05/05/2017 1328 EST Reason for referral: Neoplasm of uncertain significance, L cheek, hx of BCC Referring Provider: Lorin Niño Timeframe Requested: N/A Contact information verified in GE. Referring provider specifically requests Dr. Kay. Notes to be faxed. documented in this encounter Plan of Treatment Not on file documented as of this encounter Visit Diagnoses Not on filedocumented in this encounter Care Teams Hogshead Packer Relationship Specialty Start Date End Date Lorin Niño MD [address] [place] [address] PCP - General 07/14/12 documented as of this encounter
--- OUTSIDE RECORDS SUMMARY | 2024-03-30 16:42 | XMS_ITS | Encounter Summary ---
Author Organization [facility] Address [address] [place] [address] Care Team Providers Care Image Processing Engineer Name Role Phone Lorin Niño MD Primary Care Provider [phone] Encounter Details Date Type Department Care Team (Late st Contact Info) Description 09/07/2018 Results Only [facility] [phone] Mery Antonio MD [address] [facility] [address] [place] [address] Social History Tobacco Use Types Packs/Day Years Used Date Smoking Tobacco: Never Assessed Comments Unknown Sex and Gender Information Value Date Recorded Sex Assigned at Not on file Legal Sex Female 18:22 EST Gender Identity Female 10/03/2019 8:58 EDT Sexual Orientation Not on file documented as of this encounter Miscellaneous Notes * Result Encounter Note - Leni Willard - 09/07/2018 1501 EDT I told pt results and recommendations of left breast bx done on 09-07-18 (B9). terese 09-13-18 documented in this encounter Plan of Treatment Not on file documented as of this encounter Procedures Procedure Name Priority Date/Time Associated Diagnosis Comments SURGICAL PATHOLOGY Routine 09/07/2018 15 :00 EDT documented in this encounter Results * SURGICAL PATHOLOGY (09/07/2018 15:00 EDT) Pathologist [facility] Pathology Report: SURGICAL PATHOLOGY REPORT Reports generated via electronic interface contain original data; however they are lacking the format of the original report. Caution should be taken when reading/interpreting unformatted reports. Name: ? WALLACE CARMEN ? Accession #: ? [id number] ? : ? 1945 (Age: 73) ??F ? Collect Date: ? 09/07/2018 ? Location: ? [facility] ? Receive Date: ? 09/07/2018 ? Provider: MERY ANTONIO MD Copy to: LORIN SAEZN MD ? Final Pathologic Diagnosis: BREAST, LEFT, 12 O'CLOCK, 9 CM FROM NIPPLE, STEREOTACTIC, NEEDLE CORE BIOPSY: - Benign breast tissue with prior biopsy site changes including fat necrosis and dense hyalinized fibrosis - Microcalcifications are identified within the hyalinized fibrosis (sections 1 and 2). Document reviewed and electronically signed by: CHRIS SANTANA MD Report ??Date: 09/12/2018 16:21 By the signature above, the [...] length, and each 0.3 cm in diameter). ?? The tissue designated to contain microcalcifications are entirely submitted in 1 and the remaining tissue in 2-3. Time removed from patient: 1355 hrs. 09/07/2018 Time placed in formalin: 1405 hrs. 09/07/2018 Time out of formalin: 1900 hrs. 09/08/2018 HAYLEY Kohli (ASCP) 09/07/2018 4:38 PM End of Report [facility] 09/07/2018 15:0 0 EDT 09/07/2018 15:00 EDT us Mery Antonio MD PATHOLOGY ORDERABLES Final Resul t [facility] [address] [place] [address] documented in this encounter Visit Diagnoses Not on filedocumented in this encounter Care Teams Image Processing Engineer Relationship Specialty Start Date End Date Lorin Niño MD [address] [facility] [place] [phone] PCP - General 07/14/12 documented as of this encounter
--- OUTSIDE RECORDS SUMMARY | 2024-03-30 16:42 | XMS_ITS | Clinical Summary ---
Author Organization [facility] Address [address] [place] [address] Care Team Providers Care Channel Cementer Insole Machine Name Role Phone Lorin Niño MD Primary Care Provider Allergies No known active allergies Medications ASCORBATE CALCIUM (VITAMIN C ORAL) Take by mouth daily. Active ERGOCALCIFEROL, VITAMIN D2, (VITAMIN D ORAL) Take by mouth daily. Active tamoxifen (NOLVADEX) 20 mg tablet Take 1 Tab by mouth daily. 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 ER/UT positive, HER-2 negative. a- 05/2013 mammographic finding. Breast biopsy confirming the diagnosis. b- 05/2013-left breast lumpectomy, sentinel lymph node biopsy. [facility]. c-08/2013 completed adjuvant radiation therapy. d-08/2013 - 08/2017 on adjuvant tamoxifen. e- 08/2017 no clear indication for further Tamoxifen, however, patient is very concerned about the risk of osteoporosis and risk of a second malignancy. Decided for prophylactic tamoxifen for total of 10 years. Osteoporosis 10/04/2019 Surgical History Surgery Date Site/Laterality Comments MOHS SURGERY 09/27/12 right neck Medical History Medical History Date Comments Basal cell carcinoma 09/27/12 right neck Family History Medical History Relation Comments Lung Cancer Father Colon Cancer Paternal Grandfather Relation Status Comments Brother Alive Father Mother Paternal Grandfather Son Alive Social History Tobacco Use Types Packs/Day Years Used Date Smoking Tobacco: Former Smokeless Tobacco: Never Comments:Back in [facility] Interpersonal Safety Answer Date Record ed Physically Hurt Never 12/10/2019 Verbally Threaten Not on file 12/10/2019 Comments Unknown Sex and Gender Information Value Date Recorded Sex Assigned at Not on file Legal Sex Female 18:22 EST Gender Identity Female 10/03/2019 8:58 EDT Sexual Orientation Not on file Obstetrics History Last Filed Vital Signs Vital Sign Reading Time Taken Comments Blood Pressure 110/82 10/06/2019 1355 EDT Pulse 83 10/06/2019 1355 EDT Temperature 36.7 ??C (98 ??F) 09/27/2012 0901 EDT Respiratory Rate - - Oxygen Saturation 98% 10/06/2019 1355 EDT Inhaled Oxygen Concentration - - Weight 68 kg (150 lb) 10/06/2019 1355 EDT Height - - Body Mass Index - - Plan of Treatment Health Maintenance Due Date Last Done Comments Hepatitis C Screen 1945 Fall Risk Screening 10/05/2020 10/06/2019 RSV Immunization ( o r 60+ Years) (1 - 1-dose 75+ series) 2022 COVID-19 Vaccine (2023- season) 2024 Insurance [facility] MEDICARE MEDICARE Care Teams Channel Cementer Insole Machine Relationship Specialty Start Date End Date Lorin Niño MD [address] [place] [phone] PCP - General 07/14/12
--- OUTSIDE RECORDS SUMMARY | 2024-03-30 16:42 | XMS_ITS | Encounter Summary ---
Author Organization [facility] Address [address] [place] [address] Care Team Providers Care Emergency Technician Name Role Phone Lorin Niño MD Primary Care Provider [phone] Encounter Details Date Type Department Care Team (Latest Contact Info) Description 09/07/2018 12:33 EDT Hospital Encounter [facility] [address] [place] [address] Lorin Niño MD [address] [place] [address] [place] [phone] Discharge Disposition: Auto Discharge Social History [...] on filedocumented in this encounter Care Teams Emergency Technician Relationship Specialty Start Date End Date Lorin Niño MD [address] [place] [phone] PCP - General 07/14/12 documented as of this encounter
--- OUTSIDE RECORDS SUMMARY | 2024-03-30 16:42 | XMS_ITS ---
Author Organization Unknown ALLERGIES AND ADVERSE REACTIONS No information ASSESSMENT No information CHIEF COMPLAINT No information MEDICATIONS No information OBJECTIVE DATA No information PHYSICAL EXAMINATION No information TREATMENT PLAN Planned Care Start Date Provider Encounter for Check-up [id number] PROBLEMS No information RESULTS No information REVIEW OF SYSTEMS No information SUBJECTIVE DATA No information VITAL SIGNS No information
--- OUTSIDE RECORDS SUMMARY | 2024-03-30 16:42 | XMS_ITS | Encounter Summary ---
Author Organization [facility] Address [address] [place] [address] Care Team Providers Care Vet Tech Name Role Phone Lorin Niño MD Primary Care Provider [phone] Encounter Details Date Type Department Care Team (Late st Contact Info) Description 08/30/2018 Results Only Imaging [facility] [phone] Linette Walker MD [address] [place] [phone] Social History Tobacco Use Types Packs/Day [...] Name Priority Date/Time Associated Diagnosis Comments MA BREAST OUTSIDE CONSULTATION 08/30/2018 8:30 EDT documented in this encounter Results * MA BREAST OUTSIDE CONSULTATION (08/30/2018 8:30 EDT) Anatomical Region Laterality Modality Other 08/30/2018 8:30 EDT 08/30/2018 16:23 EDT Narrative 08/30/2018 16:23 EDT MA BREAST OUTSIDE CONSULTATION ??08/30/2018 8:30 AM Clinical History/Comments: Upper left breast calcifications, biopsy recommended. Imaging reviewed: Digital screening bilateral 3-D/synthesized 2-D mammography 08/09/2018 and digital diagnostic left breast mammography in the spot magnification compression ML and spot 3-D/synthesized 2-D MLO view. Comparisons were made with all prior available outside mammograms. Findings right breast: There are scattered fibroglandular densities. There are no suspicious calcifications, masses or other abnormalities. Findings left breast: There are scattered fibroglandular densities. Patient is status post lumpectomy at the 12 o'clock position. There are new, heterogeneous calcifications at the lumpectomy site. No other abnormalities are identified. Impression right breast: BI-RADS category 1. Negative. Recommendation right breast: Annual screening mammography. Impression left breast: BI-RADS Category 4. Suspicious. New, heterogeneous calcifications located in this patient's lumpectomy scar approximately the 12 o'clock position, 9.5 cm out from the nipple. Recommendation left breast: Stereotactic guided biopsy with clip placement is recommended. Overall assessment: Suspicious. This patient has been referred to Dr. Walker. Dr. Walker will notify the patient of the above findings and recommendations. Portions of this document may have been prepared using voice recognition software or keyboard data warehouse consultant. ??Minor irregularities or keyboard misprints may be present. Procedure Note Mary Anne Locke MD, MD - 08/30/2018 SD BREAST OUTSIDE CONSULTATION 08/30/2018 8:30 AM Clinical History/Comments: Upper left breast calcifications, biopsy recommended. Imaging reviewed: Digital screening bilateral 3-D/synthesized 2-D mammography 08/09/2018 and digital diagnostic left breast mammography in the spot magnification compression ML and spot 3-D/synthesized 2-D MLO view. Comparisons were made with all prior available outside mammograms. Findings right breast: There are scattered fibroglandular densities. There are no suspicious calcifications, masses or other abnormalities. Findings left breast: There are scattered fibroglandular densities. Patient is status post lumpectomy at the 12 o'clock position. There are new, heterogeneous calcifications at the lumpectomy site. No other abnormalities are identified. Impression right breast: BI-RADS category 1. Negative. Recommendation right breast: Annual screening mammography. Impression left breast: BI-RADS Category 4. Suspicious. New, heterogeneous calcifications located in this patient's lumpectomy scar approximately the 12 o'clock position, 9.5 cm out from the nipple. Recommendation left breast: Stereotactic guided biopsy with clip placement is recommended. Overall assessment: Suspicious. This patient has been referred to Dr. Walker. Dr. Walker will notify the patient of the above findings and recommendations. Portions of this document may have been prepared using voice recognition software or keyboard data warehouse consultant. Minor irregularities or keyboard misprints may be present. Linette Walker MD IMG MAMMOGRAPHY ORDERABLES Fin al Result documented in this encounter Visit Diagnoses Not on filedocumented in this encounter Care Teams Vet Tech Relationship Specialty Start Date End Date Lorin Niño MD [address] [place] [phone] PCP - General 07/14/12 documented as of this encounter
--- OUTSIDE RECORDS SUMMARY | 2024-03-30 16:43 | XMS_ITS | Encounter Summary ---
Author Organization [facility] Address [address] [place] [address] Care Team Providers Care Financial Services Consultant Name Role Phone Lorin Niño MD Primary Care Provider [phone] Encounter Details Date Type Department Care Team (Late st Contact Info) Description 05/25/2013 Results Only [facility] Services - [facility] ([facility]) [address], [place] [id number] Chapito Martinez MD [address] [place] [phone] Social History Tobacco Use Types Packs/Day Years [...] Date/Time Associated Diagnosis Comments SURGICAL PATHOLOGY Routine 05/25/2013 13 :28 EST documented in this encounter Results * SURGICAL PATHOLOGY (05/25/2013 13:28 EST) Pathology Report: SURGICAL PATHOLOGY REPORT Reports generated via electronic interface contain original data; however they are lacking the format of the original report. Caution should be taken when reading/interpreting unformatted reports. Name: ? WALLACE CARMEN ? Accession #: ? [id number] ? : ? 1945 (Age: 68) ??F ?Collect Date: ? 05/25/2013 ? Location: ? [facility] ? Receive Date: ? 05/26/2013 ? Provider: Chapito MARTINEZ MD Copy to: NATALIE HARRELL MD ? Final Pathologic Diagnosis: SUMMARY DIAGNOSIS FOR MALIGNANT BREAST TUMORS ? Laterality: ?Left ? AJCC (7th edition): pT1b, pN0(sn) ?? Specimen: ?Partial mastectomy with sentinel lymph node biopsy Tumor Type: ?Invasive ductal Tumor Size: ?0.7 x 0.6 x 0.5 cm Tumor Location: ? Upper outer quadrant; 2 o'clock Traci Combined Histologic Scores: ? Tubules: ?1 ? Nuclei: ?2 ? Mitotic Rate: ? 1 (actual count 1/10 HPF with field diameter of 0.54 mm) ? Total: ?4 Differentiation: ? Well Margins: ?Negative (5.0 mm from closest margin, anterior) DCIS: ? Cribriform pattern, absent necrosis, nuclear grade II % DCIS: ?Less than 5% DCIS margins: ? Negative (9.0 mm from closest margin, anterior) LVI: ? Not identified Lymph nodes: ? 0/3 (positive/total count) ER/OH: ?ER positive (90%); OH positive (90%) ([id number]) Her2/raphael: ? Negative (1+ by IHC) ([id number]) ?See separate report for gene amplification assay ?? Final Pathologic Diagnosis: A. ??LYMPH NODE, AXILLA, LEFT, SENTINEL #1, EXCISION: - One lymph node negative for malignancy (0/1). B. ??LYMPH NODE, AXILLA, LEFT, SENTINEL #2, EXCISION: - One lymph node negative for malignancy (0/1). C. ??LYMPH NODE, AXILLA, LEFT, SENTINEL #3, EXCISION: - One lymph node negative for malignancy (0/1). D. ??BREAST, LEFT, PARTIAL MASTECTOMY: - Adenocarcinoma, invasive, ductal type, well differentiated. ??See comment. - Specimen integrity: ??Intact. - Tumor location: ??Upper outer quadrant. - Tumor position: ??2 o'clock. - Tumor measures 0.7 cm in greatest dimension (AJCC: pT1b, pN0(sn)). - Surgical resection margins negative; invasive tumor present: ??- 5.0 mm from anterior margin. ??- 10.0 mm from posterior margin. ??- Greater than 1.0 cm from remaining margins. - Lymphovascular invasion is not identified. - Ductal carcinoma in situ (DCIS), cribriform pattern, absent necrosis, intermediate (II) nuclear grade. - DCIS confined to tumor mass, comprises less than 5% of the total tumor mass. - Surgical resection margins negative; DCIS present: ??- 9.0 mm from anterior margin. ??- Greater than 1.0 cm from remaining margins. - Prior biopsy site identified. Comment: There is a well defined grossly identifiable tumor present in levels 5 and 6. This tumor measures 7.0 mm in greatest dimension on microscopic examination and is 10.0 mm from the anterior margin. ??There is an additional minute focus of nonpalpable microscopic tumor in level 4, which is 5.0 mm from the anterior margin. ??DCIS is present within and adjacent to the main tumor mass. ??(Dr. Costa)/ricky ? Document reviewed and electronically signed by: ? GURPREET HUGHES MD ? Report ??Date: 05/30/2013 16:08 By the signature above, the attending physician certifies that he/she has personally conducted a gross and/or microscopic examination of the described specimens and rendered or confirmed the above diagnosis. Specimen(s) Received: A. ??Lincoln node, Lt (#1) B. ??Lincoln node (#2) C. ??Lincoln node (#3) D. ??Left breast, short stitch superior, long lateral, needle lateral at 14:00 ? Clinical History: Lt breast cancer partial mastectomy ? Intraoperative Interpretation: A. ??SPECIMEN #1, LABELLED SENTINEL NODE #1: - Demonstrating benign lymphoid tissue with no definitive evidence for metastatic tumor. Dr. Argelia Harrell (at [facility]) B. ??SPECIMEN #2, LABELLED SENTINEL NODE #2: - Demonstrating benign lymphoid tissue with no definitive evidence for metastatic tumor. Dr. Argelia Harrell (at [facility]) C. ??SPECIMEN #3, LABELLED SENTINEL NODE #3: - Demonstrating benign lymphoid tissue with no definitive evidence for metastatic tumor. Dr. Argelia Harrell (at [facility]) ? Gross Description: A. ?Received fresh labelled with proper patient identification (initials M, K) and sentinel node #1 is a single lymph node (1.4 x 0.9 x 0.5 cm). The node is hemisected and an intraoperative gross macroscopic examination and a microscopic cytopathology touch preparation are performed at the outside hospital ([facility]) with the interpretation as rendered above. ??The entire specimen is submitted as A1. B. ? Received fresh labelled with proper patient identification (initials M, K) and sentinel node #2 is a single lymph node (0.9 x 0.4 x 0.3 cm). The node is hemisected and an intraoperative gross macroscopic examination and a microscopic cytopathology touch preparation are performed at the outside hospital ([facility]) with the interpretation as rendered above. ??The entire specimen is submitted as B1. C. ?Received fresh labelled with proper patient identification (initials M, K) and sentinel node #3 is a single lymph node (0.4 x 0.2 x 0.2 cm). The node is hemisected and an intraoperative gross macroscopic examination and a microscopic cytopathology touch preparation are performed at the outside hospital ([facility]) with the interpretation as rendered above. ??The entire specimen is submitted as C1. D. ?Received fresh labelled with proper patient identification (initials M, K) and left breast is an oriented portion of fibrofatty tissue (592 g, 6.2 cm superior to inferior x 7.2 cm medial to lateral x 2.6 cm anterior to posterior). There is a needle localization wire entering the lateral aspect of the specimen. The specimen is sectioned from medial (level 1) to lateral (level 13). ? In level 6, there is a firm white spiculated mass (0.5 x 0.4 x 0.3 cm). The mass is 0.9 cm from the nearest anterior margin, 1.0 cm from the nearest posterior margin, and greater than 1.0 cm from all remaining margins. A biopsy site is identified in levels 3 through 6. ? The remaining cut surface is composed of lobulated adipose tissue with a moderate amount of fibrous tissue. ? An intraoperative gross margin examination is not performed. Cnc Operator sections are submitted as follows: Ink ferreira Yellow-anterior Black-posterior Blue-superior Green-inferior ? Red-medial Pratt-lateral ? BLOCK FERREIRA D1- ??tissue for navy fighter pilot section, from level 6 (received in cassette labeled tumor) D2- ??level 6, tissue adjacent to that procured for navy fighter pilot section, posterior edge D3- ??level 6, tissue adjacent to that procured for navy fighter pilot section, superior edge D4- ??level 6, tissue adjacent to that procured for navy fighter pilot section, inferior edge D5- ??level 1 (medial), perpendicular sections, assistance representative D6- ??level 3, superior half D7- ??level 3, inferior half D8- ??level 4, superior half D9- ??level 4, anteroinferior quadrant D10- ??level 4, posteroinferior quadrant D11- ??level 5, superior third D12- ??level 5, middle third D13- ??level 5, inferior third D14- ??level 7, middle third D15- ??level 10, superior half D16- ??level 12, inferior half Time removed from patient: ??05/25/2013 at an unspecified time Time in formalin: ??05/25/2013 at 11:05 hrs Time out of formalin: ??05/26/2013 at 19:[address] Costa 05/26/2013 03:59 PM ? C-erb-B2 IMMUNOPEROXIDASE STAIN ? Date Ordered: ? 05/31/2013 ? Status: ?? Signed Out ?Date Complete: ? 05/31/2013 ? By: ??Cecily Dover ? Date Reported: ? 05/31/2013 ? Interpretation ASSAY RESULTS Her2 SCORE: ?1+ TUMOR LOCATION: Left breast, upper outer quadrant, 2 o'clock ? CELLS WITH COMPLETE MEMBRANE STAINING: None MEMBRANE STAINING INTENSITY: Faint to moderate PARTIAL MEMBRANE STAINING: Present in 30% of cells CYTOPLASMIC STAINING: Faint STAINING PATTERN: Heterogeneous STAINING IN BENIGN EPITHELIUM: Faint, cytoplasmic, and membrane THE HER2 ASSAY PERFORMED IS INTERPRETED NEGATIVE. ?? Comment An additional test for Her2 gene amplification will be performed by in situ hybridization (JACKIE), the results of which will be issued in a separate report. (Dr. Hughes)/ljn Description Tissue submitted: Paraffin embedded tissue block labelled [id number] (D1) from [facility] ? Fixative: ??Formalin ??(This immunohistochemical assay is intended for paraffin-embedded tissue fixed in 10% neutral buffered formalin for 6-72 hours; 18-24 hours with maximum tissue thickness of 3-4 millimeters is recommended for best assay performance. ??Her2 should not be performed on alcohol fixed tissues.) The assay was performed under appropriate conditions according to the revenue stamp cutter's instructions with appropriate assay and tissue controls using an Anti-Her2 (4B5) Rabbit Monoclonal Antibody ([place]). Her2 IHC Scoring Guidelines (invasive tumor component only) 0 ? negative ?No staining or membrane staining in less than 10% of cells 1+ ? negative ?Faint partial membrane staining in more than 10% of cells 2+ ? weakly positive ?Moderate complete membrane staining in more than 10% of cells 3+ ? positive ? Strong complete membrane staining in more than 30% of cells Reference: ??ASCO-CAP Recommendations for Her2 Testing. J Clin Oncol 2013; epub (www.jco.org Feb 13, 2013) Document reviewed and electronically signed by: ? GURPREET HUGHES MD ? Report date: 05/31/2013 By the signature above, the attending physician certifies that he/she has personally conducted a gross and/or microscopic examination of the described specimens and rendered or confirmed the above diagnosis. Her2 GENE AMPLIFICATION BY IN-SITU HYBRIDIZATION (JACKIE) ? Date Ordered: ? 05/31/2013 ? Status: ?? Signed Out ?Date Complete: ? 05/31/2013 ? By: ??Cecily Dover ? Date Reported: ? 05/31/2013 ? Interpretation Description Tissue submitted: Paraffin embedded tissue block labelled [id number] (D1) from [facility] ? Specimen type: ??Breast excision An in-situ hybridization (JACKIE) assay for Her2 gene amplification status ([employer] INFORM dual JACKIE DNA probe) was performed on this specimen. ??The assay was performed under appropriate conditions according to the revenue stamp cutter's instructions with appropriate assay and tissue controls. ??A Her2 target probe and a Chromosome 17 control probe are both enumerated in twenty tumor cell nuclei and a Her2/Chr17 ratio is calculated. ??Results are generally reported as amplified (ratio >2.0) or non-amplified (ratio <2.0). ??When initial results are inconclusive (ratio 1.9 ??2.2), an minimum additional 20 nuclei are enumerated. Her2 and Chr17 average signals per cell and the Her2/Chr17 ratio are considered for the final interpretation. ??The assay is intended for use with formalin-fixed (6-72 hours), paraffin-embedded breast cancer specimens. Reference: ??ASCO-CAP Recommendations for Her2 Testing. ??J Clin Oncol 2013; epub (www.jco.org Feb 13, 2013) Results: Her2/Chr17 ratio: 1.24 Average Her2 signals per tumor cell nucleus: ? 2.1 Average Chr17 signals per tumor cell nucleus: ? 1.7 Tumor location: ?Left breast; upper outer quadrant, 2 o'clock Interpretation: ?Non-amplified The invasive tumor nuclei have no evidence of Her2 gene amplification. 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 ? Document reviewed and electronically signed by: ? GURPREET HUGHES MD ? Report date: 05/31/2013 By the signature above, the attending physician certifies that he/she has personally conducted a gross and/or microscopic examination of the described specimens and rendered or confirmed the above diagnosis. End of Report [facility] 05/25/2013 13:2 8 EST 05/26/2013 13:28 EST [facility] Ernesto Martinez MD PATHOLOGY ORDERABLES Final Result Performing Organization Address City/State/[facility] Co de Phone Number [facility] [address] [place] [address] documented in this encounter Visit Diagnoses Not on filedocumented in this encounter Care Teams Financial Services Consultant Relationship Specialty Start Date End Date Lorin Niño MD [address] [place] [id number] PCP - General 07/14/12 documented as of this encounter
--- OUTSIDE RECORDS SUMMARY | 2024-03-30 16:43 | XMS_ITS | Encounter Summary ---
Author Organization [facility] Address [address] [place] [address] Care Team Providers Care Maintenance Mgr Name Role Phone Lorin Niño MD Primary Care Provider [phone] Reason for Visit * Reason Comments Basal Cell Carcinoma right neck/below arpita waltersine Encounter Details Date Type Department Care Team (Late st Contact Info) Description 09/27/2012 9:00 EDT Office Visit [facility] Dermatology 5th [address] [id number] Petrona Kay MD [address] [facility], [address] [place] [address] Basal cell carcinoma of scalp and skin of neck (Primary Dx) Social History Tobacco Use Types Packs/Day Years Used Date Smoking Tobacco: Never Assessed Comments Unknown Sex and Gender Information Value Date Recorded Sex Assigned at Not on file Legal Sex Female 18:22 EST Gender Identity Female 10/03/2019 8:58 EDT Sexual Orientation Not on file documented as of this encounter Last Filed Vital Signs Vital Sign Reading Time Taken Comments Blood Pressure 133/85 09/27/2012 0901 EDT Pulse 67 09/27/2012 0901 EDT Temperature 36.7 ??C (98 ??F) 09/27/2012 0901 EDT Respiratory Rate - - Oxygen Saturation - - Inhaled Oxygen Concentration - - Weight - - Height - - Body Mass Index - - documented in this encounter Patient Instructions * Patient Instructions* Petrona Kay MD - 09/27/2012 9:33 EDT CARE FOLLOWING YOUR SKIN SURGERY- Sutured Wound Care for the first week ACTIVITY:? No strenuous activity for 48 hours (this includes gardening or heavy lifting of any kind). Resume moderate activity in 48 hours. No heavy exercising until you are seen for follow up in one week. Walking slowly/strolling is an excellent light activity during the first week. Running and weightlifting are not. ? If your surgery was on your head or neck, elevate your head with pillows when you lie down, and do not bend over to picking belt operator objects or tie your shoes.? Do not drink alcoholic beverages for 48 hours. DISCOMFORT: ?? Do not use aspirin, products containing aspirin, ibuprofen (AdvilTM or MotrinTM), or naproxen (AleveTM) for five days after your surgery, unless approved by your doctor. ?? To relieve discomfort, you may take acetaminophen (for example, TylenolTM or Extra-Strength TylenolTM) as directed. If your doctor has given you a prescription for Vicodin, Tylenol with codeine orPercocet, or a different medicine, use as directed. ?? After the first night (when the numbing medicine wears off and it hurts the most), pain should get slowly better, not worse. A severe increase in pain may indicate a problem. Call the office if this occurs. ?? Numbness, itching and sensitivity to temperature changes can occur after surgery and may take upto 18 months to normalize. BLEEDING, BRUISING, AND SWELLING: ?? It is normal for your wound to ooze a small amount of blood and stain the dressing. ?? Expect bruising and swelling in the area of your surgery to be the most noticeable 48 to 72 hours after surgery.?? Bruising and swelling usually begin to lessen 4 to 5 days after surgery. It should start to fade in 10-14 days. ?? You may minimize swelling by sleeping with your head elevated on several pillows. ?? If the swelling worsens rapidly or becomes increasingly tender, contact your doctor. ?? If your wound bleeds enough that the blood heavily soaks through to the outside of your bandage,do the following: ?? Leave the bandage in place. ?? Use tightly rolled up gauze or a cloth to apply direct pressure over the bandage for 20 minutes (no peeking). ?? If there is substantial bleeding that does not resolve with pressure, please call the office or proceed to the nearest emergency room or call 911 for assistance. ?? Use additional gauze and tape to maintain pressure once the bleeding has stopped. INFECTION: ?? It is normal for your wound to be slightly sore and pink. ?? If the area becomes increasingly tender, red or warm, or if you develop fever and chills, then??contact your physician. DIETARY/SMOKING RESTRICTIONS: ?? If your surgery involved your lips or mouth, avoid hot liquids and foods for the first two to three hours after surgery.?? Eat soft foods for the first 24 hours and be careful when brushing your teeth (use a child's toothbrush or mouthwash to avoid stretching your mouth) until sutures are removed. Take small bites and try to minimize laughing, smiling and yawning for 3 weeks. ?? Do not smoke for 3 weeks; smoking can be very harmful to wound healing. DAILY WOUND CARE: ?? Always wash your hands with soap and water before touching the bandage. ?? Keep the white bulky pressure bandage in place for at least 48 hours after surgery. If the bandage becomes blood tinged or loose, reinforce it with gauze & tape. (See above for management of bleeding).? GENTLY remove the bulky white pressure bandage in 48 hours, being careful not to disturb the flat, chaparro bandage. ?? Leave the flat, chaparro bandage in place until your follow up appointment. If you do not have a follow up appointment remove it in 7 days and follow directions below. ?? Keep the bandage dry and wash around it carefully. ?? If the tape becomes soiled or starts to come off, reinforce it with additional paper tape. WHEN TO CONTACT YOUR PHYSICAN: ?? Your wound continues to bleed briskly through the bandage after you have reinforced it and applied firm pressure for 20 minutes. ?? Acetaminophen has not relieved your discomfort. ?? Your wound becomes increasingly sore, tender, red, or warm. ?? Your surgery site rapidly swells. CONTACT INFORMATION: To reach the professional sports scout physician: During office hours: 8:00 am - 5:00 PM Wednesday through Wednesday ? Call:?? [phone] ? Ask to speak with a surgery nurse AFTER HOURS/WEEKENDS/HOLIDAYS:?First call Dr. Petrona Kay's cell phone: [phone]; if unable to reach Dr. Kay, Call [phone] for the MOHS surgeon professional sports scout. WOUND CARE INSTRUCTIONS for ONE WEEK AFTER SURGERY 1) Remove the steri strips in 1 week if you don't have a follow-up appointment (otherwise wait until your wound check) . Wash the area daily with warm soapy water and pat dry. Cover with Vaseline joann bandaid and repeat daily until all surface stitches appear to have dissolved. *Once the bandages are removed, the scar will be red and firm (especially in the lip/chin area). This is normal and will fade in time. It might take 6-12 months. *Massaging the area will help the scar soften and fade quicker. Begin to massage the area 6 weeks after you remove the steri strips (7 weeks after surgery). To massage apply pressure directly and firmly over the scar with the fingertips and move lengthwise along the scar. Massage the area for a fewminutes several times a day. *About 6-8 weeks after surgery it is not uncommon to see tender 'pimple-like' bumps along the scar.This is normal as the scar continues to mature and the stitches underneath the skin begin to dissolve. Do not pick or squeeze-- this will resolve on its own. Should one break open producing a small amount of drainage, apply Vaseline/white petrolatum ointment a few times a day until it is completelyhealed. *Numbness in the surgical area is expected. It might take 12-18 months for the feeling to return tonormal. During this time sensations of itchiness, tingling and occasional sharp pains might be noted. These feelings are normal and will subside once the nerves have completely healed. documented in this encounter Progress Notes * SHIP CAPTAIN, SCAN 2 - 10/05/2012 0853 EDT * Petrona Kay MD - 09/27/2012 0934 EDT Images from the original note were not included. MOHS OPERATIVE REPORT Patient Name: Ophelia Carmen Date of Service: September 27, 2012 Surgeon: Petrona Kay MD Personal Care Assistant: HAYLEY Savage Case #: [id number] Preoperative Diagnosis: basal cell carcinoma Preoperative Procedure: Mohs micrographic surgery Location of Lesion: right neck Preoperative Lesion Size: 0.8 cm x 0.6 cm Preoperative Procedure: Mohs microscopically-controlled fresh tissue excision Indications: The patient presents with a basal cell carcinoma. The pathology was reviewed prior to surgery. Because of the histologic and clinical nature of the lesion, as well as its location, the need to achieve the highest cure rate while providing maximum tissue preservation warranted tumor extirpation via microscopically-controlled excision using the Mohs fresh tissue technique. Alternate therapeutic options were discussed on several occasions prior to surgery. After informed consent was obtained and appropriate instruction was provided, the patient underwent tumor extirpation by the Mohs fresh tissue technique as follows: PROCEDURE - INITIAL STAGE: Patient position: supine Anesthesia: 1% lidocaine with epinephrine 1:100,000 local infiltration Prep: Chlorhexidine The patient was brought to the operative suite. The lesion was identified and was prepped in a sterile fashion. The area was infiltrated with lidocaine/epinephrine to achieve complete anesthesia and to augment hemostasis. An initial beveled excision was performed to the subcutis with a scalpel blade and tissue scissors as indicated. Two hashes were created in the specimen and within the adjacent epidermis for marking purposes. The Mohs specimen was excised in a sharp manner, and carefully placed in proper orientation on the surgical tray. Hemostasis of the operative wound was obtained with careful spot electrocoagulation. A sterile non-adherent dressing was applied to the operative wound. The Mohs tissue specimen was carefully transferred to the lab where the tissue was divided, and color inked for orientation. The specimens were mapped and handed personally to the boiler technician for frozen sectioning. The tissue was embedded so that the deep and surface margins lay in the same plane, and sections were made through this plane. All specimens were then evaluated histologically by me. Stage 1 findings: Wound Depth subcutis Sections Created 2 Number of Sections Containing Tumor 0 With the patient clear of microscopic tumor, surgery was considered complete. Postoperative Wound Size: 1.1 x 1.1 cm Final Diagnosis: basal cell carcinoma Final Procedure: Mohs micrographic surgery Blood Loss: minimal Operative Time: 30 minutes Complications: None Repair: Complex linear COMPLEX REPAIR Patient Information: Ophelia Carmen 67 y.o. female Referring Provider: Lorin Niño MD Surgeon: Petrona Kay MD Personal Care Assistant: HAYLEY Savage Preoperative Diagnosis: basal cell carcinoma Preoperative Procedure: Complex Linear Closure Wound Location: right neck Wound Dimensions: 1.1 cm x 1.1 cm INDICATIONS: The patient presents with an operative wound following tumor removal. After careful consideration and discussion of all repair options, it was determined that, given the location and nature of the defect, a multilayered complex linear closure offered the best chance for preservation of normal anatomic and functional relationships. Alternate options were discussed and the patient was encouraged toask questions, which, I believe, were answered appropriately. Informed consent was obtained in writing. After informed consent was obtained and appropriate instruction was provided, the patient underwent operative repair as follows. PROCEDURE: Patient Position: supine Anesthesia: 1% lidocaine with epinephrine 1:100,000 local infiltration Prep: Chlorhexidine The Mohs operative defect was identified, and the area was infiltrated with lidocaine/epinephrine to achieve complete anesthesia and to augment hemostasis. The area was prepped in the usual sterile fashion and was draped with sterile drapes. A linear closure was designed with care to place the operative repair within functional and cosmetic lines to minimize the postoperative distortion of normaltissues. The wound edges were prepared using a # 15 scalpel blade to precisely delineate the operative repair and were then extensively undermined with combined blunt and, as needed, sharp dissectiontaking great care to avoid functionally important vessels and nerves. Undermining was carried out at the level of the subcutaneous fat. Hemostasis of the operative wound was obtained with careful spot electrocoagulation, and ligature as indicated. The wound edges were then approximated using 5.0 Vicryl (polyglactin 910) buried interrupted sutures at the level of the subcutis and dermis. The epidermis was then approximated using 6.0 Fast absorbing plain gut. The final wound length was 3.7 cm Final Diagnosis: Defect following microscopically controlled excision. Final Procedure: Complex linear closure Blood Loss: minimal Operative Time: 30 minutes Complications: none Note: none MOHS SURGERY - POSTOP SUMMARY Ophelia Carmen is a 67 y.o. year old female who underwent Mohs surgery today 09/27/2012. The following is a summary of the operative findings: Lesion 1 basal cell carcinoma Location right neck Size Preop (cm) 0.8 x 0.6 cm Size Postop (cm) 1.1 x 1.0 cm Stages 1 Depth of Excision subcutis Repair complex linear repair Ms. Carmen was discharged from the operative suite in good condition. She was carefully instructed in postoperative wound care both verbally and in writing. The patient will return for follow upwith me for a full skin check in 4 months, sooner as needed. Petrona Kay MD Director [facility] 09/27/2012 * Tammi Tamayo - 09/27/2012 0854 EDT Patient Education Topic: Wound Care Method: Demonstration, Handout and Verbal Taught to: Patient Barriers: None Outcomes: independent Signature: Tammi Tamayo documented in this encounter Miscellaneous Notes * Scanned Note-Null - SHIP CAPTAIN, SCAN 2 - 10/05/2012 0814 EDT documented in this encounter Plan of Treatment Not on file documented as of this encounter Visit Diagnoses Diagnosis Basal cell carcinoma of scalp and skin of neck- Primary documented in this encounter Historical Medications * This list may reflect changes made after this encounter. ERGOCALCIFEROL, VITAMIN D2, (VITAMIN D ORAL) Take by mouth daily. ASCORBATE CALCIUM (VITAMIN C ORAL) Take by mouth daily. DOCOSAHEXANOIC ACID/EPA (EPA FISH OIL ORAL) Take by mouth daily. 10/06/2019 added in this encounter Care Teams Maintenance Mgr Relationship Specialty Start Date End Date Lorin Niño MD [address] [place] [id number] PCP - General 07/14/12 documented as of this encounter
--- OUTSIDE RECORDS SUMMARY | 2024-03-30 16:43 | XMS_ITS ---
Author Organization Unknown Address [address] [place] [phone] Phone Care Team Providers Care Estate Attorney Name Role Phone DADA Duffy Attending Unavailable Results BD DXA BONE DENSITY HIP AND SPINE - Completed: 08/19/2022 11:13 LOINC: [facility] [place], [place] [address] PACS ATTORNEY RECRUITER REPORT Patient Name: WALLACE AZAR MRN: Sex: : Age: [id number] F [id number] Account: Accession: Admit: StayType: [id number] 08/19/2022 O/P Ordered: Order ID: Submitted: Ordering Provider: 08/19/2022 10:55 [id number] [facility] RYLEY SAHA, Completed: Technologist: Resulted: 08/19/2022 11:13 DA 08/19/2022 11:33 Study Description: BD DXA BONE DENSITY HIP AND SPINE Study Reason: Osteoporosis TECHNIQUE: Performed on a Hologic Horizon W unit. COMPARISON: 2002 through 2016 FINDINGS: Lumbar Spine total T-score: -3.8, in the osteoporotic range. This represents a 12.6% decrease compared with 2016 and an 18.4% decrease when compared with 2002. Hip total T-score: -2.1. Total hip bone density has decreased 11.5% when compared with 2015 and 14.4% compared with 2002. Femoral neck yields a T score of: -3.0, in the osteoporotic range. IMPRESSION: Osteoporosis of the lumbar spine. Osteoporosis of the hip. World Health Organization criteria for BMD interpretation classify patients: Normal...... T- Score at or above -1.0 Osteopenic... T- Score between -1.0 and -2.5 Osteoporosis... T-Score at or below -2.5 Report Digitally Signed by Clau Esparza on 08/19/2022 11:33 AM EDT Social History Type Status Start Date End Date Code Code Syst em Smoking History Former smoker 05/10/1964 05/10/19746766 [id number] SNOMED CT Sex Female Hospital Discharge Instructions Should you have any questions prior to discharge, please contact a member of your healthcare team. If you have left the hospital and have any questions, please contact your primary care physician. Reason For Referral No Data Found Allergies and Adverse Reactions Allergy Substance Reaction Severity Start Date Concern Status Co de Code System No Known Drug Allergies Moderate Active [id number] SNOMED-CT Plan of Treatment BONE DENSITY DEXA SPINE & HIP 3 Encounters Encounter Diagnosis Start Date Code Code Sys tem Senile osteoporosis 08/19/2022 [id number] SNOMED-C T Personal Care Team Section Performer Name Performer Role Active Date Inactive Da antione
--- OUTSIDE RECORDS SUMMARY | 2024-03-30 16:43 | XMS_ITS | Encounter Summary ---
Author Organization [facility] Address [facility] [place] [address] Care Team Providers Care Thread Twister Name Role Phone Unknown Primary Care Provider Unavailabl e Encounter Details Date Type Department Care Team (Latest Contact Info) Description 08/12/2015 2:28 PM EDT - 08/12/2015 11:59 PM EDT Hospital [place] [phone] Discharge Disposition: Home Social History Tobacco Use Types Packs/Day Years Used Date Smoking Tobacco: Never Assessed Sex and Gender Information Value Date Recorded Sex Assigned at Not on file Gender Identity Not on file Sexual Orientation Not on file documented as of this encounter Plan of Treatment Not on file documented as of this encounter Procedures Procedure Name Priority Date/Time Associated Diagnosis Comments SURGICAL PATHOLOGY REPORT Routine 08/12/2015 12:00 PM EDT documented in this encounter Results * Surgical Pathology Report (08/12/2015 12:00 PM EDT) Final Diagnosis [id number] ?Location: [facility] The signing pathologist has (i) examined the relevant preparation(s) for the specimen(s) and (ii) rendered or confirmed the diagnosis(es). . ?Surgical Pathology DIAGNOSIS Skin, left upper arm, shave biopsy: - PIGMENTED BASAL CELL CARCINOMA, SUPERFICIAL TYPE. 08/14/15 DLD 08/14/15 Verified by: ? Silvina CHIN, Bora Chisholm ?Dermatopathol ogist ?(Electronic Signature) The attending pathologist whose signature appears on this report has reviewed all diagnostic slides and has edited the gross and/or microscopic portion of the report in rendering the final pathologic diagnosis. CLINICAL INFORMATION Specimen Submitted: A - L upper arm, shave Clinical History: 7 mm pink patch Clinical Diagnosis: BCC? SPECIMEN PROCESSING A - Labeled/Fixativ e: Left upper arm, formalin. Quantity/Size: Single, 0.8 x 0.7 x 0.1 cm. Tissue Description: Shave of chaparro-white variegated, granular skin. Sections/Proces sing: Inked and bisected. (T1) ??aml 08/14/2015 3:[address] [facility] SPECIMEN FROM SKIN / Unknown 08/12/2015 12:00 PM EDT 08/12/2015 12:00 PM EDT Rosio Conde MD PATHOLOGY/CYTOLOGY O RDERABLES [facility] [place] [address] documented in this encounter Visit Diagnoses Not on filedocumented in this encounter Care Teams Thread Twister Relationship Specialty Start Date End Date Unknown None PCP - General 02/27/14 documented as of this encounter
--- OUTSIDE RECORDS SUMMARY | 2024-03-30 16:43 | XMS_ITS | Encounter Summary ---
Author Organization [facility] Address [address] [place] [address] Care Team Providers Care Machine I Trimmer Name Role Phone Lorin Niño MD Primary Care Provider [phone] Reason for Visit * Reason Onset Date Comments Biopsy Results 07/20/2012 Encounter Details Date Type Department Care Team (Late st Contact Info) Description 07/20/2012 Telephone [facility] Dermatology 3rd Floor [facility] [address], [place] [id number] Mallory Hobbs MD [address] [place] [address] Biopsy Results Social History Tobacco Use Types Packs/Day Years Used Date Smoking Tobacco: Never Assessed Comments Unknown Sex and Gender Information Value Date Recorded Sex Assigned at Not on file Legal Sex Female 18:22 EST Gender Identity Female 10/03/2019 8:58 EDT Sexual Orientation Not on file documented as of this encounter Miscellaneous Notes * Telephone Encounter - Lacey Shafer - 08/17/2012 1108 EDT Patient aware of results. Lacey Shafer documented in this encounter Plan of Treatment Not on file documented as of this encounter Visit Diagnoses Not on filedocumented in this encounter Care Teams Machine I Trimmer Relationship Specialty Start Date End Date Lorin Niño MD [address] [facility] [place] [id number] PCP - General 07/14/12 documented as of this encounter
--- OUTSIDE RECORDS SUMMARY | 2024-03-30 16:43 | XMS_ITS | Encounter Summary ---
Author Organization [facility] Address [address] [place] [address] Care Team Providers Care Automotive Internet Sales Consultant Name Role Phone Mike Sadler MD Primary Care Provider Un available Encounter Details Date Type Department Care Team (Latest Contact Info) Description 09/24/2009 9:37 EDT - 09/24/2009 9:38 EDT Hospital Encounter [facility] - Other [address] [place] [address] Mallory Hobbs MD [address] [place] [address] Discharge Disposition: Home or Self Care Social History Tobacco Use Types Packs/Day Years Used Date Smoking Tobacco: Never Assessed Comments Unknown Sex and Gender Information Value Date Recorded Sex Assigned at Not on file Legal Sex Female 18:22 EST Gender Identity Female 10/03/2019 8:58 EDT Sexual Orientation Not on file documented as of this encounter Discharge Disposition Disposition Code Departure Means Destination Home or Self Care documented in this encounter Plan of Treatment Not on file documented as of this encounter Visit Diagnoses Not on filedocumented in this encounter Care Teams Automotive Internet Sales Consultant Relationship Specialty Start Date End Date Mike Sadler MD PCP - General 05/08/09 07/13/12 documented as of this encounter
--- OUTSIDE RECORDS SUMMARY | 2024-03-30 16:43 | XMS_ITS | Encounter Summary ---
Author Organization [facility] Address [address] [place] [address] Care Team Providers Care Mammalogy Teacher Name Role Phone Mike Sadler MD Primary Care Provider Un available Reason for Visit * Reason Onset Date Comments Other 06/27/2012 Encounter Details Date Type Department Care Team (Late st Contact Info) Description 06/27/2012 Telephone [facility] Dermatology 3rd Floor [facility] [address] [place] [address], [place] [phone] Mallory Hobbs MD [address] [place] [address] Other Social History Tobacco Use Types Packs/Day Years Used Date Smoking Tobacco: Never Assessed Comments Unknown Sex and Gender Information Value Date Recorded Sex Assigned at Not on file Legal Sex Female 18:22 EST Gender Identity Female 10/03/2019 8:58 EDT Sexual Orientation Not on file documented as of this encounter Miscellaneous Notes * Telephone Encounter - Sydney Avalos - 06/28/2012 1611 EST Booked 3.8.13 @ 9:15. Patient confirm appt. * Telephone Encounter - Ness Miranda - 06/27/2012 1317 EST PATIENT CALLED AND STATES THAT SHE WANTS HER YEARLY SKIN CHECK APPOINTMENT WITH DR HOBBS BEFORE SHE LEAVES. PLEASE CALL. documented in this encounter Plan of Treatment Not on file documented as of this encounter Visit Diagnoses Not on filedocumented in this encounter Care Teams Mammalogy Teacher Relationship Specialty Start Date End Date Mike Sadler MD PCP - General 05/08/09 07/13/12 documented as of this encounter
--- OUTSIDE RECORDS SUMMARY | 2024-03-30 16:43 | XMS_ITS | Encounter Summary ---
Author Organization [facility] Address [address] [place] [address] Care Team Providers Care Tearoom Host Name Role Phone Lorin Niño MD Primary Care Provider [phone] Encounter Details Date Type Department Care Team (Late st Contact Info) Description 07/15/2012 Results Only [facility] Dermatology 5th Floor [facility] [address] [place], [place] [id number] Onesimo Hobbs MD [address] [place] [id number] Social History Tobacco Use Types Packs/Day Years [...] Date/Time Associated Diagnosis Comments SURGICAL PATHOLOGY Routine 07/15/2012 13 :19 EST documented in this encounter Results * SURGICAL PATHOLOGY (07/15/2012 13:19 EST) Pathology Report: SURGICAL PATHOLOGY REPORT Reports generated via electronic interface contain original data; however they are lacking the format of the original report. Caution should be taken when reading/interpreti ng unformatted reports. Name: ? WALLACE CARMEN ? Accession #: ? [id number] ? : ? 1945 (Age: 67) ??F ? Collect Date: ? 07/15/2012 ? Location: ? DERM ? Receive Date: ? 07/15/2012 ? Provider: ONESIMO HOBBS MD Copy to: ? Final Pathologic Diagnosis: ? Skin of neck, right, below jawline, shave biopsy: 1. ?Basal cell carcinoma, nodular type. ? - Basal cell carcinoma present at base of shave biopsy specimen. Microscopic Description: ? Irregularly shaped islands of atypical basal cells infiltrate the dermis. The basal cells have scant cytoplasm and round dark nuclei. ??Mitotic figures and apoptotic bodies are evident. ??The nuclei at the periphery of the islands have a palisaded arrangement. ??The islands are associated with a fibromyxoid stroma and there is cleft formation between some of the islands and stroma. ??(Dr. Swanson)/[facility] Document reviewed and electronically signed by: QUINTEN SWANSON MD Report ??Date: 07/18/2012 16:32 By the signature above, the attending physician certifies that he/she has personally conducted a gross and/or microscopic examination of the described specimens and rendered or confirmed the above diagnosis. Specimen(s) Received: ? Right neck below jawline Clinical History: ? Persistent papule right neck. ??DDx: ??BCC, inflamed nevus, other; clinical diagnosis code: 239.2 Gross Description: ? Received in formalin labelled Wallace Carmen and right neck is a 0.3 x 0.3 x 0.1 cm white firm papule. ??The specimen is submitted intact as (1). (Jonathan Ragland)/[facility] End of Report [facility] 07/15/2012 13:1 9 EST 07/15/2012 13:19 EST us Onesimo Hobbs MD PATHOLOGY ORDERABLES Final Result Performing Organization Address City/State/[facility] Co de Phone Number [facility] [address] [place] [address] documented in this encounter Visit Diagnoses Not on filedocumented in this encounter Care Teams Tearoom Host Relationship Specialty Start Date End Date Lorin Niño MD [address] [place] [address] PCP - General 07/14/12 documented as of this encounter
--- OUTSIDE RECORDS SUMMARY | 2024-03-30 16:43 | XMS_ITS | Encounter Summary ---
Author Organization [facility] Address [address] [place] [address] Care Team Providers Care Log Brander Name Role Phone Lorin Niño MD Primary Care Provider [phone] Reason for Visit * Reason Comments Skin Exam Encounter Details Date Type Department Care Team (Late st Contact Info) Description 07/15/2012 9:15 EST Office Visit [facility] Dermatology 5th Floor [facility] [address] [place], [place] [id number] Onesimo Hobbs MD [address] [place] [address] Neoplasm of unspecified nature of bone, soft tissue, and skin (Primary Dx); Actinic keratosis; Seborrheic keratosis Social History Tobacco Use Types Packs/Day Years Used Date Smoking Tobacco: Never Assessed Comments Unknown Sex and Gender Information Value Date Recorded Sex Assigned at Not on file Legal Sex Female 18:22 EST Gender Identity Female 10/03/2019 8:58 EDT Sexual Orientation Not on file documented as of this encounter Patient Instructions * Patient Instructions* Onesimo Hobbs MD - 07/15/2012 10:15 EST DERMATOLOGY WOUND CARE INSTRUCTIONS FOR SKIN BIOPSY The DRESSING/BANDAID should remain in place for 24 hours. You may shower or bathe after 24 hours; remove the bandage and replace it after the shower. DISCOMFORT: Extra-Strength Tylenol, as directed by coat repair inspector, usually relieves any pain you may have. BLEEDING: You may notice some blood on the edges of the dressing the first day and this is NORMAL. If the bleeding soaks through the dressing, remove the dressing, and apply firm, steady pressure with a moist clean wash cloth for fifteen minutes. If the bleeding stops, redress the wound, if not, call our office at . ACTIVITY: You may resume normal activity in 1 day unless instructed otherwise. WOUND CARE: ?? Wash hands with soap and water before changing the dressing. ?? Change the dressing daily and when it becomes wet. Clean the wound daily with mild soap and water. You may gently loosen any crusts with a cotton swab. The wound may be slightly tender and may bleed a small amount. A small amount of discharge is normal. Apply a thin layer of sterile petroleum jelly over the wound. Cover the wound with a Telfa (non-stick) dressing or bandage. It is important to keep the wound covered. CONTACT THE OFFICE IF YOU EXPERIENCE: ?? increased redness ?? warmth to touch ?? increased pain ?? drainage with a foul odor ?? rapid swelling of the wound ?? fever or chills Please call our office or . documented in this encounter Progress Notes * Onesimo Hobbs MD - 07/15/2012 0943 EST Dermatology Outpatient Clinic Note 07/15/2012 CC: skin check HPI: Interval visit for this 67-year-old white woman with history of a blue nevus on the scalp and actinic keratoses. Last seen in 2009. Here today for skin check. Is concerned about a persistent papule under right jaw. Has been present for several years. She readily admits to scratching it. She also has a few other spots of the face including one on the right lateral face which she also has beenscratching. None are bleeding or ulcerating. None of these have been treated. She has tried to be good about sun protection in the past few years Health is otherwise good. No active problems today See documentation in [facility] for medical, surgical, social and family history, which were reviewed atthis visit. No current outpatient prescriptions on file prior to visit. No Known Allergies Review of Systems Constitutional: Negative for fever, fatigue and unexpected weight change. HENT: Negative for mouth sores. Eyes: Negative for pain. Respiratory: Negative for cough and shortness of breath. Cardiovascular: Negative for chest pain and palpitations. Gastrointestinal: Negative for nausea, vomiting, abdominal pain, diarrhea, constipation and blood in stool. Genitourinary: Negative for dysuria, frequency and hematuria. Musculoskeletal: Negative for myalgias, joint swelling, arthralgias and muscle stiffness in the morning. Skin: Negative for rash. Neurological: Negative for numbness and headaches. Endo/Heme/Allergies: Does not bruise/bleed easily. Psychiatric/Behavioral: Negative for disturbed wake/sleep cycle. The patient is not nervous/anxious. EXAM: Well-appearing pleasant woman. Awake alert and cooperative. Complete skin exam performed including scalp, face, neck, chest, abdomen, buttocks and perianal skin, upper and lower extremities. Skin is normal or benign with the following notations: 5 mm keratotic to somewhat shiny papule under right jaw line. Scaly inflamed appearing reddish-brown macule right lateral face. Few non- inflamed light brown macules on both lateral sides of the face. There is diffuse photodamage injury in sun exposed areas. Scattered bland appearing waxy keratoses on trunk and extremities. No other concerning lesions seen on range of exam IMP: 1. Papule of uncertain etiology right neck under jawline; differential diagnosis includes basal cell carcinoma, inflamed nevus, other tumor 2. Actinic keratosis right lateral face 3. Solar lentigines versus seborrheic keratoses lateral face 4. Seborrheic keratoses PLAN: 1. Shave biopsy lesion right neck per accompanying note 2. A total of 1 precancerous lesions at the following sites were treated with liquid nitrogen cryotherapy: Right lateral face. Discussed risks of treatment including pain, blistering, infection, resultant hypopigmentation. Wound care explained. Should notify us if any lesions do not resolve. 3.Continue aggressive sun protection, wearing clothing, a wide-brimmed hat and high SPF sunscreen on areas that can't be covered. Regular skin surveillance with intermittent self skin exams recommended, watching for any new or changing skin lesions or ugly ducklings. 4. Reassured about benign appearance of the remainder of the seborrheic keratoses, no treatment recommended SHAVE BIOPSY PATIENT INFORMATION: Ophelia Carmen : MRN: [id number] SURGEON: ONESIMO HOBBS MD The indication, risks, benefits and alternatives to this procedure were discussed in detail with the patient and all questions were answered. Informed consent was obtained in writing. PROCEDURE NOTE Specimen A Procedure: Tangential Shave Indication: Diagnostic Biopsy Site: right neck below jaw line Anesthesia: 1% lidocaine with epinephrine 1:100,000 local infiltration Prep: Alcohol The lesion was prepped as above and locally anesthetized. The specimen was removed by tangential shave using a Dermablade??. Hemostasis was achieved with pressure and/or aluminum chloride. The wound was cleansed with alcohol and a sterile dressing was applied over Petrolatum ointment. Verbal and written wound care instructions were given.The specimen was submitted to pathology for histological evaluation. Follow-up one year, sooner when necessary ONESIMO HOBBS MD 07/15/2012 9:43 * Shobha Bundy - 07/15/2012 0930 EST Review of Systems Constitutional: Negative for fever, fatigue and unexpected weight change. HENT: Negative for mouth sores. Eyes: Negative for pain. Respiratory: Negative for cough and shortness of breath. Cardiovascular: Negative for chest pain and palpitations. Gastrointestinal: Negative for nausea, vomiting, abdominal pain, diarrhea, constipation and blood in stool. Genitourinary: Negative for dysuria, frequency and hematuria. Musculoskeletal: Negative for myalgias, joint swelling, arthralgias and muscle stiffness in the morning. Skin: Negative for rash. Neurological: Negative for numbness and headaches. Endo/Heme/Allergies: Does not bruise/bleed easily. Psychiatric/Behavioral: Negative for disturbed wake/sleep cycle. The patient is not nervous/anxious. Shobha Bundy 07/15/2012 documented in this encounter Miscellaneous Notes * Scanned Note-Null - METAL TANK BUILDER, SCAN 2 - 07/20/2012 1909 EDT documented in this encounter Plan of Treatment Not on file documented as of this encounter Visit Diagnoses Diagnosis Neoplasm of unspecified nature of bone, soft tissue, and skin- Primary Actinic keratosis Seborrheic keratosis Other seborrheic keratosis documented in this encounter Care Teams Log Brander Relationship Specialty Start Date End Date Lorin Niño MD [address] [place] [address] PCP - General 07/14/12 documented as of this encounter
--- OUTSIDE RECORDS SUMMARY | 2024-03-30 16:43 | XMS_ITS | Encounter Summary ---
Author Organization [facility] Address [address] [place] [address] Care Team Providers Care Supervisor Rice Milling Name Role Phone Lorin Niño MD Primary Care Provider [phone] Encounter Details Date Type Department Care Team (Latest Contact Info) Description 05/12/2013 13:12 EST - 05/12/2013 23:59 EST Hospital Encounter [address] [address] Unknown, Provider, MD Discharge Disposition: Home or Self Care Social History Tobacco Use Types Packs/Day Years Used Date Smoking Tobacco: Never Assessed Comments Unknown Sex and Gender Information Value Date Recorded Sex Assigned at Not on file Legal Sex Female 18:22 EST Gender Identity Female 10/03/2019 8:58 EDT Sexual Orientation Not on file documented as of this encounter Medications at Time of Discharge ASCORBATE CALCIUM (VITAMIN C ORAL) Take by mouth daily. ERGOCALCIFEROL, VITAMIN D2, (VITAMIN D ORAL) Take by mouth daily. DOCOSAHEXANOIC ACID/EPA (EPA FISH OIL ORAL) Take by mouth daily. 10/06/2019 documented as of this encounter Discharge Disposition Disposition Code Departure Means Destination Home or Self Prison documented in this encounter Plan of Treatment Pending Results Name Type Priority Associated Diagnoses Date /Time OUTSIDE IMAGES - OTHER CHEST Imaging 06/05/2013 7:26 EST OUTSIDE IMAGES - MAMMO BREAST Imaging 05/25/2006 9:04 EST OUTSIDE IMAGES - MAMMO BREAST Imaging 12/17/2010 9:04 EDT OUTSIDE IMAGES - MAMMO BREAST Imaging 05/01/2013 9:04 EST OUTSIDE IMAGES - MAMMO BREAST Imaging 05/05/2013 9:04 EST OUTSIDE IMAGES - US BREAST Imaging 05/05/2013 9:04 EST OUTSIDE IMAGES - DEXA BONE SCAN Imaging 10/21/2013 8:11 EDT Scheduled Orders Name Type Priority Associated Diagnoses Orde r Schedule OUTSIDE IMAGES - OTHER CHEST Imaging One Time for 1 Occurrences starting 06/05/2013 until 06/05/2013 OUTSIDE IMAGES - MAMMO BREAST Imaging One Time for 1 Occurrences starting 06/05/2013 until 06/05/2013 OUTSIDE IMAGES - MAMMO BREAST Imaging One Time for 1 Occurrences starting 06/05/2013 until 06/05/2013 OUTSIDE IMAGES - MAMMO BREAST Imaging One Time for 1 Occurrences starting 06/05/2013 until 06/05/2013 OUTSIDE IMAGES - MAMMO BREAST Imaging One Time for 1 Occurrences starting 06/05/2013 until 06/05/2013 OUTSIDE IMAGES - US BREAST Imaging One Time for 1 Occurrences starting 06/05/2013 until 06/05/2013 OUTSIDE IMAGES - DEXA BONE SCAN Imaging One Time for 1 Occurrences starting 10/20/2013 until 10/20/2013 documented as of this encounter Visit Diagnoses Not on filedocumented in this encounter Care Teams Supervisor Rice Milling Relationship Specialty Start Date End Date Lorin Niño MD [address] [place] [phone] PCP - General 07/14/12 documented as of this encounter
--- OUTSIDE RECORDS SUMMARY | 2024-03-30 16:43 | XMS_ITS | Encounter Summary ---
Author Organization [facility] Address [address] [place] [address] Care Team Providers Care Aluminum Container Tester Name Role Phone Lorin Garland MD Primary Care Provider [phone] Encounter Details Date Type Department Care Team (Late st Contact Info) Description 05/12/2013 Results Only [facility] Laboratory Services - [facility] ([facility]) [address] [place], [place] [phone] Chapito Martinez MD [address] [place] [phone] Social History Tobacco Use Types Packs/Day [...] Date/Time Associated Diagnosis Comments SURGICAL PATHOLOGY Routine 05/12/2013 6:57 EST documented in this encounter Results * SURGICAL PATHOLOGY (05/12/2013 6:57 EST) Pathology Report: SURGICAL PATHOLOGY REPORT Reports generated via electronic interface contain original data; however they are lacking the format of the original report. Caution should be taken when reading/interpreting unformatted reports. Name: ? WALLACE CARMEN ? Accession #: ? [id number] ? : ? 1945 (Age: 68) ??F ?Collect Date: ? 05/12/2013 ? Location: ? [facility] ? Receive Date: ? 05/13/2013 ? Provider: Chapito MARTINEZ MD Copy to: NATALIE GARLAND MD ? Final Pathologic Diagnosis: BREAST, LEFT, 2:00, NEEDLE BIOPSY: - ??Adenocarcinoma, invasive, ductal type, nuclear grade I. See comment. - ??Focal ductal carcinoma in situ, cribriform pattern, low (I) nuclear grade. - ??Microcalcifications associated with invasive carcinoma. Comment: ? The invasive carcinoma extend into surrounding adipose tissue and is composed of malignant cells showing clear tubular formation, low grade nuclei, and scant mitotic activities. ??Based on this core biopsy, the histologic features are those of a well differentiated ductal adenocarcinoma. ?? Immunohistochemical studies of estrogen and progesterone receptors have been ordered, the results of which will be issued in a separate report. Crew Leader Gluing sections of this case were reviewed at the intradepartmental breast consultation conference. ?? Dr. Olmedo 05/16/2013 01:30 PM ? Document reviewed and electronically signed by: ? DANIA ANG MD ? Report ??Date: 05/16/2013 14:18 By the signature above, the attending physician certifies that he/she has personally conducted a gross and/or microscopic examination of the described specimens and rendered or confirmed the above diagnosis. Specimen(s) Received: Lt breast mass, 12 o'clock ? Clinical History: Solid mass Lt breast ? Gross Description: ? Received in formalin labelled with proper patient identification (initials M, K) and no site identified on container but requisition states left breast, 12 o'clock are fragmented discohesive yellow tissue measuring 3.2 x 3.0 x 1.3 cm in aggregate. Entirely submitted in cassettes one through six. Time removed from patient: Not provided Time placed in formalin: Not provided Time out of formalin: 1900 hrs. on 05/13/2013 Dr. Garcia 05/13/2013 10:52 AM ? ESTROGEN AND PROGESTERONE RECEPTOR IMMUNOPEROXIDASE STAINS ? Date Ordered: ? 05/16/2013 ? Status: ?? Signed Out ?Date Complete: ? 05/16/2013 ? By: ??Cecily Dover ? Date Reported: ? 05/16/2013 ? Interpretation BREAST, LEFT, 2 O'CLOCK, NEEDLE BIOPSY: - Adenocarcinoma, invasive. - Positive for estrogen receptors (in greater than 90% of tumor cells). ? - Nuclear staining intensity: Strong. - Positive for progesterone receptors (in greater than 90% of tumor cells). ? - Nuclear staining intensity: Strong. Description Tissue submitted: Paraffin embedded tissue block labelled [id number] (6) from [facility] Immunohistochemical assays for estrogen receptors (SP1, [employer]) and progesterone receptors (SP2, [employer]) have been performed on this specimen. Standard heat activated antigen retrieval protocol (EDTA buffer at pH 8.0 and 98 C x 30 minutes) was employed followed by automated immunostaining. Intranuclear receptor complexes were visualized on tissue sections using an HRP polymer immunohistochemical technique. ??This assay is intended for paraffin-embedded tissue fixed in 10% neutral buffered formalin for 6-72 hours. ? Results are reported as negative (<1% nuclear staining) or positive with the proportion of positive cells noted. ??Estrogen receptor expression in <5% of tumor cells may not have a strong interaction with estrogen receptor modulators such as Tamoxifen. ??(Dr. Ang)/ricky Reference: ??ASCO-CAP Guideline Recommendations for IHC testing of ER and [place]. J Clin Oncol 2010;28:4239-6238. NOTE: ??One or more of the reagents used in immunohistochemical testing in this case may not have been cleared or approved by the U.S. Food and Drug Administration (FDA). ??The FDA has determined that such clearance or approval is not necessary. ??These tests are used for clinical purposes. ??They should not be regarded as investigational or for research. ??These reagents' performance characteristics have been determined by [facility]. ??This laboratory is certified under the Clinical Laboratory Improvement Amendments of 1988 (CLIA-88) as qualified to perform high complexity clinical laboratory testing. Document reviewed and electronically signed by: ? DANIA ANG MD ? Report date: 05/16/2013 By the signature above, the attending physician certifies that he/she has personally conducted a gross and/or microscopic examination of the described specimens and rendered or confirmed the above diagnosis. End of Report [facility] 05/12/2013 6:57 EST 05/13/2013 6:57 EST [facility] Ernesto Martinez MD PATHOLOGY ORDERABLES Final Result Performing Organization Address City/State/[facility] Co de Phone Number [facility] [address] [place] [address] documented in this encounter Visit Diagnoses Not on filedocumented in this encounter Care Teams Aluminum Container Tester Relationship Specialty Start Date End Date Lorin Garland MD [address] [place] [address] PCP - General 07/14/12 documented as of this encounter
--- OUTSIDE RECORDS SUMMARY | 2024-03-30 16:43 | XMS_ITS | Encounter Summary ---
Author Organization [facility] Address [address] [place] [address] Care Team Providers Care Biodiesel Processing Technician Name Role Phone Lorin Niño MD Primary Care Provider [phone] Reason for Visit * Reason Comments Basal Cell Carcinoma neck, right, below jawline, Encounter Details Date Type Department Care Team (Late st Contact Info) Description 08/11/2012 8:00 EDT Office Visit [facility] Dermatology 5th Floor [address] [id number] Petrona Kay MD [address] [facility], [address] [place] [address] Basal cell carcinoma of scalp [...] * Patient Instructions* Petrona Kay MD - 08/11/2012 8:11 EDT Mohs Surgery Preoperative Information for Dr. Kay's patients ?? If your appointment is in the morning, plan to be here most of the day. Surgery appointment times are approximate. We do our best to remain on time, but surgery is unpredictable and your surgery may be delayed on occasion by up to an hour. If your appointment is at 1pm, plan to be here until theend of the day, or possibly longer if your surgery is extensive. Do not schedule any appointments, work or social events later that day. Depending on the extent of the surgery and the lab time, it may take several hours just to remove the cancer, and then another 1-2 hours to do the suturing. You will have some downtime while we are waiting for slides to be prepared, so please bring a book, crossword puzzles, knitting, etc. We also have wireless internet available in our waiting room. ?? The entire procedure is performed with local numbing medicine/anesthesia. You will not be put tosleep for the procedure, so please eat breakfast or lunch before your appointment and take any normal medications you usually take unless told not to. There will be a few snacks in the [facility] waiting room, including coffee and usually muffins, but if you want to eat/drink anything else feel free to bring that with you. (The one exception is if you are having an eye surgeon perform your repair, thenrefer to their preoperative instructions because they may want you to be fasting). ?? We recommend bringing a family member or friend with you to your appointment, especially if it will be a large surgery on your face or near your eyes (or at least have someone available to call should you not feel up to driving home). At the end of the day it is nice to not have to navigate the parking garage, or deal with traffic. You will be tired and the area may start to become sore beforeyou leave. We usually recommend just plain acetaminophen/Tylenol for pain because it is less likelyto cause bleeding after surgery. Plan not to be alone for at least 12 hours after surgery, if possible. ?? Plan to take it easy for several days if the surgery is on your head or neck. We recommend no heavy lifting, exercise or anything that increases your heart rate much for 48 hours after surgery (due to the increased risk of bleeding). Cutting back to 30% of your usual exercise routine for the remainder of that 1st week is a good idea. If possible, it would be good to take 1-2 days off from workbecause you will be wearing a bulky bandage and may have swelling/bruising for several days afterward. ?? If you are taking Vitamin E, garlic, gingko, or ginseng please discontinue these one week prior to surgery. Additionally, if you take baby aspirin for preventative reasons only, please discontinueit for 10 days before surgery and don't resume taking it for 2 days after surgery. All of these cancause bleeding. ?? Ginger Silva PA-C, is a physician's events assistant who regularly works with Dr. Kay. She performs the numbing/local anesthesia prior to surgery, assists Dr. Kay with the Mohs procedure, and often performs some suturing. She has had more than 3 years of plastic surgery experience prior tojoining the Mohs Surgery team at [facility] in 2006, and is very skilled. ?? Wear comfortable slip-on shoes to your appointment if you have them. Comfortable clothes that unbutton and do not need to be pulled over your head are also a good idea. Do not wear your favorite shirt or white/light clothing if you can avoid it. Note that the surgery will take place on the 5th floor of [place] [address] in the [facility]. If you would like, bring your own music (iPod, etc) for listening during the procedure. For additional information on Mohs surgery please visit the following website from the [employer]: [email or web address] documented in this encounter Progress Notes * Eleni Judd - 08/11/2012 0816 EDT Images from the original note were not included. MOHS EVALUATION NOTE Chief Complaint Patient presents with ??? 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 The patient is referred to consider Mohs surgery versus other treatment options. The patient notes that this lesion has been present for approximately 2 years , and reports slow growth and and failure to heal. The patient???s risk factors for skin cancer include sanchez type I or II skin. Pacemaker/ICD: no Blood thinners: no Joints replaced/stents/valves: no Allergies (Latex/antibiotics): no For patient's past medical history, past surgical history, medications, medication allergies, social history and family history please please refer to the patients electronic record in [facility]. Objective: Well-appearing, NAD, A&O x 3 Complete physical examination of the affected area in the office today revealed a 0.7 cm x 0.6 cm pink macule, located on the right lateral neck about 2 cm below the jawline. The remainder of the face, head, neck and hands were clear of concerning lesions. Pathology: Nodular basal cell carcinoma Assessment: - basal cell carcinoma Plan: Ms. Carmen and I discussed the meaning of the diagnosis of skin cancer and the options for treatment including curettage and electrodesiccation, radiation therapy, conventional excision, and excision by Mohs micrographic surgery. Due to the need for a high cure rate and optimum functional and aesthetic outcome, I feel that Mohs surgery is indicated. The risks of Mohs surgery and potential rec onstructive surgery, including but not limited to, bleeding, scarring, infection, recurrence, injury to functionally or cosmetically important nerve structures and an unsatisfactory cosmetic result were reviewed. The patient was given an opportunity to ask questions, and I believe that all of her questions were answered satisfactorily. In addition the patient was provided with written material that describes the Mohs procedure and related matters. Ms. Carmen understands that following Mohs surgery an operative repair may be required and mayinvolve substantial suturing. We have jointly planned to have me repair the wound at the day of surgery. She understands that following reconstruction, if performed, many months may elapse before a decision can be made about the final cosmetic result, and that, in some cases a revision may be necessary to optimize the outcome. I explained to Ms. Carmen that in addition to the risk of recurrence from her skin cancer she has an increased risk of developing additional new skin cancers elsewhere. For that reason, followup with general dermatology, for ongoing skin surveillance examinations, a fter surgery, will be imperative. The patient has been scheduled to undergo surgery at the next available appointment. Attestation statement: I saw and examined the patient with the resident/fellow. I agree with the findings and plan of care documented in the resident's/fellow's note. Petrona Kay MD [facility] 08/11/2012 11:09 * Tammi Tamayo - 08/11/2012 0740 EDT Review of Systems Constitutional: Negative for fever, [...] wake/sleep cycle. The patient is not nervous/anxious. documented in this encounter Plan of Treatment Not on file documented as of this encounter Visit Diagnoses Diagnosis Basal cell carcinoma of scalp and skin of neck- Primary documented in this encounter Care Teams Biodiesel Processing Technician Relationship Specialty Start Date End Date Lorin Niño MD [address] [facility] [place] [place] [address] PCP - General 07/14/12 documented as of this encounter
--- OUTSIDE RECORDS SUMMARY | 2024-03-30 16:43 | XMS_ITS | Encounter Summary ---
Author Organization [facility] Address [address] [place] [address] Care Team Providers Care Jail Manager Name Role Phone Mike Sadler MD Primary Care Provider Un available Encounter Details Date Type Department Care Team (Late st Contact Info) Description 09/24/2009 Results Only [facility] Dermatology 5th Floor [facility] [address] [place] [address] Onesimo Hobbs MD [address] [place] [address] Social History Tobacco Use Types Packs/Day Years [...] Date/Time Associated Diagnosis Comments SURGICAL PATHOLOGY Routine 09/24/2009 0:00 EDT documented in this encounter Results * SURGICAL PATHOLOGY (09/24/2009 0:00 EDT) Pathology Report: SURGICAL PATHOLOGY REPORT ? Reports generated via electronic interface contain original data; ? however they are lacking the format of the original report. ? Caution should be taken when reading/interpreti ng unformatted reports. ? Name: ? MAHURINVOLK, WALLACE ? Accession #: ? [id number] ? : ? 1945 (Age: 64) ??F ? Collect Date: ? 09/24/2009 ? Location: ? [facility] ? Receive Date: ? 09/25/2009 ? Provider: ONESIMO HOBBS MD ? Copy to: ISAURA DADA MD ? Final Pathologic Diagnosis: ? Skin of scalp, left lateral, punch biopsy: ? 1. ?Blue nevus. ? - Lesion extends to peripheral edge of biopsy specimen. ? - Lesion measures approximately 1.0 mm to the base. ? Document reviewed and electronically signed by: ? Eleni Francis MD ? Report ??Date: 09/26/2009 16:18 ? By the signature above, the attending physician certifies that he/she has ? personally conducted a gross and/or microscopic examination of the described ? specimens and rendered or confirmed the above diagnosis. ? Specimen(s) Received: ? L lateral scalp, skin punch ? Clinical History: ? New black macule on scalp; Ddx: MM, blue nevus; clinical diagnosis code: ?? 239.2 ? Gross Description: ? Received in formalin labelled [place], Wallace and scalp L is a ?? punch biopsy of chaparro-white skin measuring 0.5 cm in diameter and 0.3 cm in ? thickness. ??There is a central hernandez-purple macule measuring 0.3 x 0.2 cm. ??The ?? specimen is bisected and submitted entirely in one cassette. ??(Jonathan Donahue)/km ? End of Report ? [facility] 09/24/2009 09/25/2009 14: 22 EDT us Onesimo Hobbs MD PATHOLOGY ORDERABLES Final Result [facility] [address] [place] [address] documented in this encounter Visit Diagnoses Not on filedocumented in this encounter Care Teams Jail Manager Relationship Specialty Start Date End Date Mike Sadler MD PCP - General 05/08/09 07/13/12 documented as of this encounter
--- OUTSIDE RECORDS SUMMARY | 2024-03-30 16:43 | XMS_ITS | Encounter Summary ---
Author Organization [facility] Address [address] [place] [address] Care Team Providers Care Nut Sorter Name Role Phone Mike Sadler MD Primary Care Provider Un available Encounter Details Date Type Department Care Team (Late st Contact Info) Description 07/02/2010 Results Only [facility] Laboratory Services - [facility] ([facility] [address], [place] [phone] Lorin Niño MD [address] [place] [address] Social History Tobacco Use Types Packs/Day Years [...] Procedure Name Priority Date/Time Associated Diagnosis Comments CYTOPATHOLOGY Routine 07/02/2010 0:00 EST documented in this encounter Results * CYTOPATHOLOGY (07/02/2010 0:00 EST) Pathology Report: CYTOPATHOLOGY REPORT ? Reports generated via electronic interface contain original data; ? however they are lacking the format of the original report. ? Caution should be taken when reading/interpreti ng unformatted reports. ? Name: ? WALLACE CARMEN ? Accession #: ? [id number] ? : ? 1945 (Age: 65) ??F ?Collect Date: ? 07/02/2010 ? Location: ? [facility] ? Receive Date: ? 07/04/2010 ? Provider: LORIN DADA MD ? Copy to: ? Final Report ? SPECIMEN ADEQUACY ? Satisfactory for Evaluation ? - transformation zone component present ? GENERAL CATEGORIZATION ? Negative for Intraepithelial Lesion or Malignancy ? Last Menstural Period: > 10 yrs ? Specimen/Source: ??Pap Test, Cervix/Endocervix, ThinPrep Imaging System with ? manual evaluation ? Document reviewed and electronically signed by: ? Chary [place], [place](ASCP) ? Report ??Date: 07/08/2010 13:46 ? HPV with Pap Test ? Date Ordered: ? 07/08/2010 ? Status: ?? Signed Out ?Date Complete: ? 07/10/2010 ? By: ??System Interface ? Date Reported: ? 07/10/2010 ? Interpretation ? RESULT: Negative for HPV types 16, 18, 31, 33, 35, 39, 45, 51, 52, ? 56, 58, 59, and 68. ? Comments ? Document reviewed and electronically signed by: ? System Interface ? Report date: 07/10/2010 ? By the signature above, the attending physician certifies that he/she has ? personally conducted a gross and/or microscopic examination of the described ? specimens and rendered or confirmed the above diagnosis. ? End of Report ? [facility] 07/02/2010 07/04/2010 us Lorin Niño MD PATHOLOGY ORDERABLES Final Res ult Performing Organization Address City/State/[facility] Co de Phone Number [facility] [address] [place] [address] documented in this encounter Visit Diagnoses Not on filedocumented in this encounter Care Teams Nut Sorter Relationship Specialty Start Date End Date Mike Sadler MD PCP - General 05/08/09 07/13/12 documented as of this encounter
--- OUTSIDE RECORDS SUMMARY | 2024-03-30 16:43 | XMS_ITS | Clinical Summary ---
Author Organization [facility] [place] [address] Care Team Providers Care Low Pressure Boiler Operator Name Role Phone Unknown Primary Care Provider Unavailabl e Social History Tobacco Use Types Packs/Day Years Used Date Smoking Tobacco: Never Assessed Sex and Gender Information Value Date Recorded Sex Assigned at Not on file Gender Identity Not on file Sexual Orientation Not on file Plan of Treatment Health Maintenance Due Date Last Done Comments Hepatitis C Screening 1963 Tetanus/Diphtheria/Pertussis Vaccines (1 - Tdap) 01/21 Zoster vaccine (1 of 2) 1997 Advance Directive 2002 Bone Density Scan 01/22/2012 Pneumoccocal Vaccine: 65+ (1 of 1 - PCV) 01/22/2012 RSV Vaccine (1 - 1-dose 75+ series) 2022 Covid-19 Vaccine (1 - 2023-25 season) 2024 Influenza (Flu) vaccine (1 o f 1 - Influenza standard series) 01/09/2024 Care Teams Low Pressure Boiler Operator Relationship Specialty Start Date End Date Unknown None PCP - General 02/27/14
[2024-03-30 23:05] LABS: Calcium 11.2 mg/dL (8.5-10.1); Vitamin D 25 Total 50.8 ng/mL (30-100)
[2024-03-31 18:17] LABS: Parathyroid Hormone,Intact 100.1 pg/mL (19.0-88.0)
== END 2024-03-30 16:39 | disposition home or self-care (01) ==
LOC: NCHCN 16:38
PROVIDERS: PCP Family Medicine; Visit Provider Family Medicine
DX: E83.52 Hypercalcemia (principal)
CPT/HCPCS: 82306; 82310; 83970